=== PATIENT | male | born 1960 | race Caucasian/White ===

== ENCOUNTER 2018-05-31 12:45 | Outpatient (CLI) | payer MEDICAID, SELFPAY ==
--- NOTE | 2018-05-31 13:00 | DI.RAD_ITS ---
SYMPTOMS/DIAGNOSIS: RT THUMB PAIN, RT SHOULDER PAIN, AC OA RIGHT THUMB: Three views. No bone or joint abnormality is identified. The soft tissues are unremarkable. IMPRESSION: No acute abnormality. RIGHT SHOULDER: Multiple views. There are mild hypertrophic changes seen at the acromioclavicular joint. The glenohumeral joint is well maintained. The bones are intact and normally mineralized. The soft tissues are unremarkable. 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
== END 2018-05-31 13:05 ==
PROVIDERS: PCP Nurse Practitioner; Visit Provider Nurse Practitioner
DX: M25.511 Pain in right shoulder (principal); M19.011 Primary osteoarthritis, right shoulder; M79.644 Pain in right finger(s)
CPT/HCPCS: 73030; 73140

== ENCOUNTER 2018-06-24 00:43 | Outpatient (CLI) | payer MEDICAID, SELFPAY ==
--- NOTE | 2018-06-24 11:37 | DI.CT_ITS ---
SYMPTOMS/DIAGNOSIS: RT SHOULDER PAIN, M25.511, BONE DISORDER SEEN ON X-RAY, M85.[address]: Comparison is made with plain films dated . There is spurring at the AC joint which appears to impinge on the distal supraspinatus muscle. There is no evidence of muscle atrophy. There is no gross evidence of a rotator cuff tendon tear. No joint effusion is visible. There is minimal spurring at the glenoid. The visualized portions of the right lung are clear. IMPRESSION: AC joint degenerative changes with impingement on the distal supraspinatus muscle.
== END 2018-06-24 01:03 ==
PROVIDERS: PCP Nurse Practitioner; Visit Provider Orthopaedic Surgery
DX: M25.511 Pain in right shoulder (principal); M19.011 Primary osteoarthritis, right shoulder; M75.41 Impingement syndrome of right shoulder; M85.811 Other specified disorders of bone density and structure, right shoulder
CPT/HCPCS: 73200

== ENCOUNTER 2018-09-20 01:12 | Emergency (ER) | payer MEDICAID, SELFPAY ==
[2018-09-20] VITALS (12 sets, daily range): BP systolic 127–158; BP diastolic 68–91; PULSE 60–73; RESP 11–23; TEMP 36.6; O2SAT 91–99
--- NOTE | 2018-09-20 01:26 | W.ED.GENAD ---
Discharge Plan Disposition Patient Disposition: HOME Condition: Good Discharge Details Chief Complaint: Chest Pain Clinical Impression: Abdominal pain, acute, epigastric, Biliary colic Primary Care Provider: Mervat Garner ED Provider: Louie Enamorado Home Meds and New Rx's Prescriptions: New dicyclomine 10 mg capsule 10 mg PO QID Qty: 20 RF: 0 ibuprofen [Motrin IB] 200 MG tablet 600 mg PO Q6H 5 Days Qty: 60 RF: 0 No Action trazodone 100 mg tablet 100 mg PO HS PRNRF: 0 Jardiance 10 mg tablet 10 mg PO DAILY Qty: 30 RF: 1 aspirin [Aspir-81] 81 MG tablet,delayed release (DR/EC) 81 mg PO DAILY RF: 0 multivitamin [Daily Multiple] 1 EACH tablet 1 ea PO DAILY RF: 0 Blood Glucose Test 1 EACH strip 1 ea Miscellaneous DAILY Qty: 300 RF: 3 lancets 1 EACH misc 1 ea Miscellaneous DAILY Qty: 300 RF: 3 vitamin B complex 1 EACH capsule 1 ea PO DAILY RF: 0 bee pollen 550 MG capsule 550 mg PO DAILY RF: 0 cane 1 EACH device 1 ea Miscellaneous DAILY Qty: 1 RF: 0 hydrochlorothiazide 25 MG tablet 25 mg PO DAILY Qty: 90 RF: 3 Januvia 100 MG tablet 100 mg PO DAILY Qty: 90 RF: 3 glipizide 5 mg tablet extended release 24hr 10 mg PO DAILY Qty: 180 RF: 3 metoprolol succinate 50 mg tablet extended release 24 hr 50 mg PO DAILY Qty: 90 RF: 3 pantoprazole 40 mg tablet,delayed release (DR/EC) 40 mg PO BID Qty: 60 RF: 3 ascorbic acid (vitamin C) 1,000 MG tablet 2,000 mg PO DAILY RF: 0 lysine [L-Lysine] 500 mg tablet 1,000 mg PO DAILY RF: 0 Discharge Instructions Instructions: Biliary Colic (ED), Abdominal Pain (ED) Additional Instructions: You will be contacted for your outpatient ultrasound of your gallbladder. Please follow-up with surgery, he will be contacted when an appointment has been made. If you notice any worsening of your symptoms, or any new symptoms such as vomiting, diarrhea, fever, chills, shortness of breath, chest pain, numbness, weakness, or fainting , please return immediately to the emergency department for reevaluation. Please follow up with your primary care provider as soon as possible for reassessment and reevaluation. As always, it was a pleasure participating in your medical care today. Referrals: Mervat Garner NP [Primary Care Provider] - Medical Decision Making This is a 57-year-old male with a past medical history of marijuana use, diabetes, obesity, and anxiety who presents for evaluation of chest pain. Pain started early today, although pain being greater than 12 hours , it has gradually gotten worse. He describes it as an achy stabbing-like sensation in his epigastric region that goes straight to his back, up his chest and down his abdomen. He denies any tearing sensation. He denies a history of cardiac disease. No exertional components. Exam demonstrates warm extremities, intact peripheral pulses, no signs of vascular compromise. Patient is hemodynamically stable. Differential includes an anxiety component, gallbladder etiology, dissection, ACS, pancreatitis. Perform laboratory and imaging workup to rule out acute life-threatening etiologies. Anxiety attack would certainly be a diagnosis of exclusion after these have been ruled out. 1:41 AM 2 nitroglycerin were given and the patient had no improvement of his symptoms whatsoever. We will try GI cocktail. 2:49 AM GI cocktail did improve the patient's symptoms somewhat. Laboratory workup has returned, patient demonstrates continued reassuring vital signs, labs demonstrate no white count, no bandemia or left shift. Normal electrolytes, normal AST, ALT and bilirubin. Troponin is less than 0.02, lipase is normal. CT scan has returned and does demonstrate a notably distended gallbladder, however no clear indication for inflammation per radiology report. Especially with normal lipase, bilirubin, AST and ALT with no white count I do not think that the patient demonstrates current clinical picture consistent with acute cholecystitis. Some of his pain may certainly be from his mildly distended gallbladder, but there is no indication for an acute surgical approach at this time. Ultrasound is not available at this time however with reassuring vital signs, no signs of infection or severe gallbladder pathology I do feel that an outpatient ultrasound is certainly reasonable with surgical follow-up. Bedside limited ultrasound does demonstrate small gallstones and a distended gallbladder, gallbladder wall thickness appears to be within normal limits, and he demonstrates a negative sonographic Rico sign. Patient also may have a component of mild gastric ulcers with his improvement with his GI cocktail. With an unchanged EKG, normal troponin, and otherwise benign CT evaluation signs and symptoms clinically inconsistent with ACS, dissection, PE, I feel he can be discharged home. We will give Bentyl for home use, close surgical follow-up, and outpatient ultrasound follow-up. I have extensively reviewed the treatment plan and discharge instructions with the patient. I have addressed all patient concerns at this time. The patient was made aware of what symptoms to monitor for that would warrant a return to the emergency department. Discussed the plan with the patient, they demonstrate verbal understanding and agreement with our assessment and plan at this time. EKG 1: 21 Rate 66, intervals normal, sinus rhythm, no significant ST elevations, there is T wave flattening in V3 V4 V5. Q wave is noted in lead III.. Prior EKG from 05/02/14 demonstrates no acute changes. CLINICAL HISTORY: 57 years old, male; Pain; Chest pain; Type not specified; Abdominal pain; Generalized; Patient HX: Severe abd and chest pain, vomiting TECHNIQUE: Imaging protocol: Axial computed tomographic angiography images of the abdomen with intravenous contrast material, including non-contrast images if performed. 3D rendering: MIP reconstructed images were created and reviewed. Radiation optimization: All CT scans at this facility use at least one of these dose optimization techniques: automated exposure control; mA and/or kV adjustment per patient size (includes targeted exams where dose is matched to clinical indication); or iterative reconstruction. Contrast material: Omnipaque 350 Contrast volume: 100 ml Contrast route: IV RAC COMPARISON: CR CHEST 2 VIEWS PA,LAT 07/14/2016 3:49 PM FINDINGS: Lungs: Unremarkable. No consolidation. VASCULATURE: Aorta: No aortic aneurysm. No aortic dissection. Celiac trunk and mesenteric arteries: No occlusion or significant stenosis. Renal arteries: No occlusion or significant stenosis. ABDOMEN: Liver: Liver is diffusely low-attenuation. Gallbladder and bile ducts: Gallbladder is distended but not obviously inflamed. Pancreas: Normal. No ductal dilation. Spleen: Normal. No splenomegaly. Adrenals: Normal. No mass. Kidneys and ureters: Normal. No hydronephrosis. Stomach and bowel: Unremarkable. No obstruction. No mucosal thickening. Intraperitoneal space: Unremarkable. No free air. No significant fluid collection. Bones/joints: Unremarkable. No acute fracture. No dislocation. Soft tissues: Unremarkable. Lymph nodes: Unremarkable. No enlarged lymph nodes. IMPRESSION: Fatty liver. Distended gallbladder. Dictated and Authenticated by: Zeeshan Klein MD. HPI General Date/Time Provider Initiated Documentation: 09/20/18 01:20. HPI Narrative: This is a 57-year-old male with a past medical history of diabetes, mild obesity, marijuana, and anxiety who presents today for evaluation chest pain. The patient states that for the last few hours today he has had chest pain that started in the epigastric region and radiated up to his chest and down his abdomen. Pain is worsened throughout the day. It started while he was just sitting and resting. There appears to be no exertional component. He denies any significant shortness of breath, arm, neck, or shoulder pain. He denies any vomiting or diarrhea. Does admit to mild nausea. He states that he has had symptoms similar to this and worse in the past which was an anxiety attack at that time. Patient denies any previous history of cardiac disease. He denies any tobacco use. Patient denies any urinary complaints. He has no other complaints modifying factors at this time. Related Data Home Medications Medication Instructions Recorded Confirmed ascorbic acid (vitamin C) 2,000 mg PO DAILY 04/12/14 09/20/18 aspirin [Aspir 81] 81 mg PO DAILY tab-cap 05/09/15 09/20/18 multivitamin [Daily Multiple 1 ea PO DAILY 05/09/15 09/20/18 Vitamin] blood sugar diagnostic [Blood #300 strip 05/23/15 08/31/18 Glucose Test] lancets #300 ea 05/23/15 08/31/18 bee pollen 550 mg PO DAILY 12/30/16 09/20/18 vitamin B complex 1 ea PO DAILY 12/30/16 09/20/18 cane #1 ea 08/19/17 08/31/18 hydrochlorothiazide 25 mg PO DAILY #90 tab-cap 10/26/17 09/20/18 sitagliptin [Januvia] 100 mg PO DAILY #90 tab-cap 12/17/17 09/20/18 glipizide ER 5 mg tablet, extended 10 mg PO DAILY #180 tab-cap 03/08/18 09/20/18 release 24 hr metoprolol succinate ER 50 mg 50 mg PO DAILY #90 tab 03/23/18 09/20/18 tablet,extended release 24 hr pantoprazole 40 mg tablet,delayed 40 mg PO BID #60 tab 05/21/18 09/20/18 release empagliflozin 10 mg tablet 10 mg PO DAILY #30 tab 08/31/18 09/20/18 lysine 500 mg tablet 1,000 mg PO DAILY tab 08/31/18 09/20/18 trazodone 100 mg tablet 100 mg PO HS PRN tab-cap 08/31/18 09/20/18 dicyclomine 10 mg PO QID #20 cap 09/20/18 ibuprofen [Motrin Ib] 600 mg PO Q6H 5 Days #60 tab 09/20/18 Previous Rx's Medication Instructions Recorded cane #1 ea 08/19/17 hydrochlorothiazide 25 mg PO DAILY #90 tab-cap 10/26/17 sitagliptin [Januvia] 100 mg PO DAILY #90 tab-cap 12/17/17 glipizide ER 5 mg tablet, extended 10 mg PO DAILY #180 tab-cap 03/08/18 release 24 hr metoprolol succinate ER 50 mg 50 mg PO DAILY #90 tab 03/23/18 tablet,extended release 24 hr pantoprazole 40 mg tablet,delayed 40 mg PO BID #60 tab 05/21/18 release empagliflozin 10 mg tablet 10 mg PO DAILY #30 tab 08/31/18 dicyclomine 10 mg PO QID #20 cap 09/20/18 ibuprofen [Motrin Ib] 600 mg PO Q6H 5 Days #60 tab 09/20/18 Allergies Allergy/AdvReac Type Severity Reaction Status Date / Time pregabalin [From Lyrica] AdvReac Mild 10/27/2016 Verified 09/20/18 01:33 lower extremity edema metformin AdvReac elevated Verified 09/20/18 01:33 creatinine General Stated Complaint: Chest Pain KT: 2 Review of Systems Review of Systems All systems reviewed & are unremarkable except as noted in HPI and below PFSH Medical History Diabetes type 2, controlled Essential hypertension GERD (gastroesophageal reflux disease) History of Helicobacter pylori infection Surgical History Arthroplasty of knee (08/14/15) Colonoscopy - IV Sedation (04/20/15) Family History Mother Substance abuse Diabetes Essential hypertension Heart disease Hyperlipidemia Mental disorder Other Chronic mental illness Social History Smoking/Tobacco Use Status: Former Tobacco Use Drug use: Daily Substance use type: marijuana Do you feel safe at home: Yes Do you feel safe in your relationship?: Yes Exam Narrative Exam Narrative: 1.Const: Well-nourished, Well-developed, appearing stated age 2.Eyes: PERRL, no conjunctival injection, and symmetrical lids. 3.ENT: Atraumatic external nose and ears. Moist MM. Neck: Symmetric, trachea midline, No thyromegaly. 4.CVS: +S1/S2, No murmurs or gallops. Peripheral pulses 2+ and equal in all extremities. Brisk capillary refill in all extremities. 5.RESP: Unlabored respiratory effort. Clear to auscultation bilaterally. No wheezes rales or rhonchi 6.GI: Soft, mild diffuse generalized abdominal tenderness. No guarding or rebound. No pain at McBurney's point, negative Rico sign 7.MSK: Normocephalic/Atraumatic, Extremities w/o deformity or ttp No cyanosis or clubbing, Normal movement of all extremities 8.Skin: Warm, Dry. No rashes or lesions. 9.Neuro: battery charger conveyor line II-XII grossly intact. Sensation grossly intact, no focal neurologic deficits. 10.Psych: (AAO) x3. Appropriate mood and affect
[2018-09-20 01:40] LABS: Abs Immature Grans 0.02 k/cumm (0.0-0.09); Absolute Basophil Count 0.05 k/cumm (0.0-0.2); Absolute Eosinophil Count 0.14 k/cumm (0.0-0.7); Absolute Lymphocyte Count 3.73 k/cumm (1.2-3.4); Absolute Monocyte Count 1.03 k/cumm (0.11-0.7); Absolute Neutrophil Count 5.03 k/cumm (1.2-6.7); Basophils % 0.5; Eosinophils % 1.4; HGB 17.2 g/dL (13.5-17.5); Immature Grans % 0.2; Lymphocytes % 37.3; Mean Corp. HGB Concentration 35.8 g/dL (32.0-36.0); Mean Corpuscular Hemoglobin 31.6 pg (27.0-33.0); Mean Corpuscular Volume 88.1 fL (80-95); Mean Platelet Volume 10.4 fL (8.0-11.0); Monocytes % 10.3; Neutrophils % 50.3; Platelet Count 234 x1000/uL (130-400); RBC 5.45 m/cumm (4.50-6.00); RBC Distribution Width 12.9 % (11.8-14.1)
[2018-09-20] MEDS: Aspirin 81 MG CHEW 324 MG CH (01:42)
[2018-09-20 01:46] LABS: Lipase 239 U/L (73-393)
[2018-09-20 01:50] LABS: PTT Activated 27.5 sec (21.0-31.4); Prothrombin Time 9.9 sec (9.3-11.0)
[2018-09-20 02:01] LABS: ALT 71 U/L (12-78); AST 37 U/L (15-37); Albumin 4.1 g/dL (3.4-5.0); Alkaline Phosphatase 124 U/L (46-116); Anion Gap 9.9 mmol/L (3-11); BUN 21 mg/dL (7-18); Bilirubin, Total 0.9 mg/dL (0.2-1.0); CO2 30.1 mmol/L (21.0-32.0); CREATININE 1.27 mg/dL (0.70-1.30); Calcium 9.3 mg/dL (8.5-10.1); Chloride 99 mmol/L (98-107); ETHANOL BLOOD < 3.0 mg/dL (<3); Estimated GFR 58.66 (mL/min/1.73m2); Glucose 190 mg/dL (70-100); NT-proBNP 16 pg/mL; Potassium 3.5 mmol/L (3.5-5.1); Sodium 139 mmol/L (136-145); Troponin I < 0.02 ng/mL (0.00-0.06)
[2018-09-20] MEDS: Ondansetron 4 MG/2 ML VIAL IVP (02:03)
[2018-09-20] MEDS: Omnipaque 350 MG/ML 100 ML BTL IJ (02:23)
--- NOTE | 2018-09-20 02:30 | DI.CT_ITS ---
SYMPTOMS/DIAGNOSIS: CHEST AND ABDOMINAL PAIN, ? DISSECTION CTA OF THE CHEST AND ABDOMEN: CT angiography was performed with multi slice acquisition and multi planar and 3D reconstruction. Routine examination was performed. CT ANGIOGRAPHY OF THE CHEST: The thoracic aorta is intact and normal caliber. No evidence of dissection or aneurysm. The heart size is within normal limits. No significant pericardial effusion is seen. The visualized pulmonary arteries show no evidence of embolic disease. No significant thoracic adenopathy, pleural effusion or pneumothorax is identified. The lungs show no evidence of a consolidating infiltrate. The tracheobronchial tree is unremarkable. The bones are intact. IMPRESSION: No evidence of acute thoracic aortic injury/dissection. CT ANGIOGRAPHY OF THE ABDOMEN: The abdominal aorta is intact. No dissection or aneurysm is seen. The celiac axis is unremarkable without evidence of occlusion or significant stenosis. The mesenteric arteries are unremarkable without evidence of occlusion or significant stenosis. The renal arteries are unremarkable. There is diffuse decreased attenuation of the liver consistent with hepatic steatosis. The portal and superior mesenteric veins appear patent. The gallbladder is distended. No stones or biliary ductal dilatation is present. The pancreas, spleen, adrenal glands, kidneys and ureters are unremarkable. The bowel is unremarkable. No significant abdominal adenopathy, ascites or pneumoperitoneum is present. The bones are intact. IMPRESSION: 1. No evidence of acute abdominal arterial injury. 2. Hepatic steatosis. 3. Distended gallbladder. No stones or biliary ductal dilatation is present.
[2018-09-20] MEDS: Normal Saline 1,000 ML 1000 ML IV (02:31)
[2018-09-20] MEDS: Normal Saline Flush 10 ML SYR IVP (02:31)
--- NOTE | 2018-09-20 02:44 | DI.VRAD_ITS ---
EXAM: CT Angiography Chest With Contrast EXAM DATE/TIME: 09/20/2018 1:32 AM CLINICAL HISTORY: 57 years old, male; Pain; Chest pain; Type not specified; Abdominal pain; Generalized; Patient HX: Severe abd and chest pain, vomiting TECHNIQUE: Imaging protocol: Axial computed tomographic angiography images of the chest with intravenous contrast using CT angiography protocol. 3D rendering: MIP reconstructed images were created and reviewed. Radiation optimization: All CT scans at this facility use at least one of these dose optimization techniques: automated exposure control; mA and/or kV adjustment per patient size (includes targeted exams where dose is matched to clinical indication); or iterative reconstruction. Contrast material: Omnipaque 350 Contrast volume: 100 ml Contrast route: IV RAC COMPARISON: CR CHEST 2 VIEWS PA,LAT 07/14/2016 3:49 PM FINDINGS: Pulmonary arteries: Unremarkable. No obvious pulmonary emboli. Aorta: Unremarkable. No aortic aneurysm. No aortic dissection. Lungs: Unremarkable. No consolidation. No masses. No suspicious nodules. Pleural space: Unremarkable. No pneumothorax. No pleural effusion. Heart: Unremarkable. No pericardial effusion. No obvious heart strain. Lymph nodes: Unremarkable. No enlarged lymph nodes. Bones/joints: Unremarkable. No acute fracture. Soft tissues: Unremarkable. IMPRESSION: No acute findings. EXAM: CT Angiography Abdomen With Contrast EXAM DATE/TIME: 09/20/2018 1:32 AM CLINICAL HISTORY: 57 years old, male; Pain; Chest pain; Type not specified; Abdominal pain; Generalized; Patient HX: Severe abd and chest pain, vomiting TECHNIQUE: Imaging protocol: Axial computed tomographic angiography images of the abdomen with intravenous contrast material, including non-contrast images if performed. 3D rendering: MIP reconstructed images were created and reviewed. Radiation optimization: All CT scans at this facility use at least one of these dose optimization techniques: automated exposure control; mA and/or kV adjustment per patient size (includes targeted exams where dose is matched to clinical indication); or iterative reconstruction. Contrast material: Omnipaque 350 Contrast volume: 100 ml Contrast route: IV RAC COMPARISON: CR CHEST 2 VIEWS PA,LAT 07/14/2016 3:49 PM FINDINGS: Lungs: Unremarkable. No consolidation. VASCULATURE: Aorta: No aortic aneurysm. No aortic dissection. Celiac trunk and mesenteric arteries: No occlusion or significant stenosis. Renal arteries: No occlusion or significant stenosis. ABDOMEN: Liver: Liver is diffusely low-attenuation. Gallbladder and bile ducts: Gallbladder is distended but not obviously inflamed. Pancreas: Normal. No ductal dilation. Spleen: Normal. No splenomegaly. Adrenals: Normal. No mass. Kidneys and ureters: Normal. No hydronephrosis. Stomach and bowel: Unremarkable. No obstruction. No mucosal thickening. Intraperitoneal space: Unremarkable. No free air. No significant fluid collection. Bones/joints: Unremarkable. No acute fracture. No dislocation. Soft tissues: Unremarkable. Lymph nodes: Unremarkable. No enlarged lymph nodes. IMPRESSION: Fatty liver. Distended gallbladder. Dictated and Authenticated by: Zeeshan Klein MD. Ordering:SANDRA Palma MD
[2018-09-20] MEDS: Dicyclomine 20 MG TAB PO (03:08)
[2018-09-20] MEDS: Ketorolac 30 MG/ML VIAL IM (03:08)
--- NOTE | 2018-09-20 09:18 | CMPROGNOTE_ITS ---
Care Management Progress Note 09/20-Dr. Enamorado requested assistance with a general surgery f/u in two weeks for biliary colic. Referral faxed to [facility] this am.
--- NOTE | 2018-09-20 09:18 | PDOC.ERCMPRO ---
Care Management Progress Note 09/20-Dr. Enamorado requested assistance with a general surgery f/u in two weeks for biliary colic. Referral faxed to [facility] this am.
== END 2018-09-20 03:19 | disposition home or self-care (01) ==
LOC: ER 03:18
PROVIDERS: Emergency Provider Student in an Organized Health Care Education/Training Program; PCP Nurse Practitioner
DX: R10.13 Epigastric pain (principal); K80.20 Calculus of gallbladder without cholecystitis without obstruction; I10 Essential (primary) hypertension; E11.9 Type 2 diabetes mellitus without complications
CPT/HCPCS: 36415; 71275; 74175; 80053; 83690; 93005; 96360; 96372; 99285; 80320; 83880; 84484; 85025; 85610; 85730; 93010; J1885; J3490

== ENCOUNTER 2018-09-24 00:48 | Outpatient (CLI) | payer MEDICAID, SELFPAY ==
--- NOTE | 2018-09-24 07:54 | DI.US_ITS ---
SYMPTOM/DIAGNOSIS: RUQ PAIN, ENLARGED GALLBLADDER ABDOMEN ULTRASOUND: The liver is enlarged and is of increased echogenicity and decrease through transmission consistent with hepatic steatosis. No focal hepatic abnormality is seen. Significant portions of the liver were non visualized. There is cholelithiasis. Gallbladder wall is of normal thickness. No biliary dilatation is seen. Pancreas poorly visualized. Kidneys appear intact as seen. Abdominal aorta and IVC poorly visualized. CONCLUSION: Findings consistent with hepatic steatosis and cholelithiasis.
== END 2018-09-24 01:08 ==
PROVIDERS: PCP Nurse Practitioner; Visit Provider Student in an Organized Health Care Education/Training Program
DX: R10.11 Right upper quadrant pain (principal); K76.0 Fatty (change of) liver, not elsewhere classified; K80.20 Calculus of gallbladder without cholecystitis without obstruction
CPT/HCPCS: 76700

== ENCOUNTER 2018-11-16 09:48 | Outpatient (CLI) | payer MEDICAID, SELFPAY ==
[2018-11-16 11:16] LABS: ALT 58 U/L (12-78); AST 26 U/L (15-37); Albumin 4.1 g/dL (3.4-5.0); Alkaline Phosphatase 110 U/L (46-116); Anion Gap 10.1 mmol/L (3-11); BUN 20 mg/dL (7-18); Bilirubin, Total 0.6 mg/dL (0.2-1.0); CO2 27.9 mmol/L (21.0-32.0); CREATININE 1.09 mg/dL (0.70-1.30); Calcium 9.2 mg/dL (8.5-10.1); Calculated LDL 112; Chloride 104 mmol/L (98-107); Cholesterol 167 mg/dL (50-200); Glucose 174 mg/dL (70-100); HDL Cholesterol 27 mg/dL (40-60); Sodium 142 mmol/L (136-145); Total Protein 7.6 g/dL (6.4-8.2); Triglyceride 143 mg/dL (30-150)
[2018-11-16 11:48] LABS: COMMENT (LAB VIEW ONLY) 382.98 mg/dL; Microalb ug/mg Crea 2.2 ug/mg Cr
[2018-11-17 10:49] LABS: Hepatitis C Ab w Rflx HCV PCR Negative (NEGAT)
[2018-11-17 11:32] LABS: Syphilis Serology (RPR) Negative (Negative)
[2018-11-17 12:13] LABS: HIV-1/2 Ag & Ab Screen Negative (NEGAT)
== END 2018-11-16 10:08 ==
PROVIDERS: PCP Nurse Practitioner; Visit Provider Nurse Practitioner
DX: E78.1 Pure hyperglyceridemia (principal); I10 Essential (primary) hypertension; Z11.3 Encounter for screening for infections with a predominantly sexual mode of transmission; Z20.5 Contact with and (suspected) exposure to viral hepatitis; Z11.59 Encounter for screening for other viral diseases; Z11.4 Encounter for screening for human immunodeficiency virus [HIV]
CPT/HCPCS: 36415; 80053; 80061; 83721; 86803; 87389; 82043; 82570; 86592

== ENCOUNTER 2019-02-16 08:55 | Outpatient (CLI) | payer MEDICAID, SELFPAY ==
--- NOTE | 2019-02-16 08:57 | DI.RAD_ITS ---
SYMPTOMS/DIAGNOSIS: CHRONIC BACK PAIN, M54.4, G89.29 LUMBAR SPINE: The vertebral bodies are well maintained in height. There are small endplate osteophytes throughout. There is sacralization of the left L 5 transverse process. No spondylolysis, spondylolisthesis or scoliosis is seen. IMPRESSION: Mild degenerative disc changes.
== END 2019-02-16 09:15 ==
PROVIDERS: PCP Nurse Practitioner; Visit Provider Nurse Practitioner
DX: M54.5 Low back pain (principal); M51.36 Other intervertebral disc degeneration, lumbar region; G89.29 Other chronic pain
CPT/HCPCS: 72110

== ENCOUNTER 2019-06-23 14:38 | Outpatient (CLI) | payer MEDICAID, SELFPAY ==
--- NOTE | 2019-06-23 12:03 | DI.RAD_ITS ---
EXAM: XR SHOULDER RT COMPLETE 2+V CLINICAL HISTORY: pain M25.511 TECHNIQUE: Six views were obtained. COMPARISON: LEFT SHOULDER COMPLETE from 05/03/2014 FINDINGS: There are prominent hypertrophic degenerative changes at the acromioclavicular joint. There appears to be mild thinning of the cartilaginous joint space of the glenohumeral joint. Minimal subchondral sclerosis and marginal osteophyte formation of the glenoid noted. Humeral head appears essentially i ntact. IMPRESSION: Prominent hypertrophic AC degenerative changes. Mild DJD glenohumeral joint.
--- NOTE | 2019-06-23 12:06 | DI.RAD_ITS ---
EXAM: XR CERVICAL SPINE COMP 4-5V CLINICAL HISTORY: pain M54.2 CERVICALGIA, TECHNIQUE: Six views were obtained. COMPARISON: No exams were available for comparison FINDINGS: Note is made of soft tissue calcification in the posterior midline of the cervical region from the C3 to C5 levels consistent with ligamentous and/or tendinous calcification. There is slight loss of th e cervical lordosis. The intervertebral disc spaces appear well maintained. Mild hypertrophic spurr ing of the vertebral endplates and facet joints is noted in the lower cervical region. No other sign ificant bony abnormality seen. Neural foramina appear fairly well maintained bilaterally except for perhaps slight narrowing at C3-4 on the right. IMPRESSION: Mild degenerative changes of the cervical spine as described above.
== END 2019-06-23 14:58 ==
PROVIDERS: PCP Nurse Practitioner; Visit Provider Nurse Practitioner
DX: M25.511 Pain in right shoulder (principal); M19.011 Primary osteoarthritis, right shoulder; M54.2 Cervicalgia; M47.812 Spondylosis without myelopathy or radiculopathy, cervical region
CPT/HCPCS: 72050; 73030

== ENCOUNTER 2019-06-30 12:00 | Outpatient (REF) | payer MEDICAID, SELFPAY ==
[2019-06-30 13:26] LABS: Abs Immature Grans 0.02 k/cumm (0.0-0.09); Absolute Basophil Count 0.04 k/cumm (0.0-0.2); Absolute Eosinophil Count 0.19 k/cumm (0.0-0.7); Absolute Lymphocyte Count 2.12 k/cumm (1.2-3.4); Absolute Monocyte Count 0.62 k/cumm (0.11-0.7); Absolute Neutrophil Count 4.22 k/cumm (1.2-6.7); Basophils % 0.6; Eosinophils % 2.6; HCT 48.3 % (40.0-50.0); HGB 16.9 g/dL (13.5-17.5); Immature Grans % 0.3 %; Lymphocytes % 29.4; Mean Corpuscular Hemoglobin 31.5 pg (27.0-33.0); Mean Corpuscular Volume 89.9 fL (80-95); Mean Platelet Volume 11.1 fL (8.0-11.0); Monocytes % 8.6; Neutrophils % 58.5; Platelet Count 296 x1000/uL (130-400); RBC 5.37 m/cumm (4.50-6.00); White Blood Cell Count 7.21 k/cumm (4.4-10.8)
[2019-06-30 13:35] LABS: ALT 859 U/L (16-63); AST 355 U/L (15-37); Albumin 4.1 g/dL (3.4-5.0); Alkaline Phosphatase 392 U/L (46-116); Anion Gap 10.1 mmol/L (3-11); BUN 19 mg/dL (7-18); Bilirubin, Total 4.8 mg/dL (0.2-1.0); CO2 26.9 mmol/L (21.0-32.0); CREATININE 1.23 mg/dL (0.70-1.30); Calcium 9.4 mg/dL (8.5-10.1); Chloride 97 mmol/L (98-107); Glucose 272 mg/dL (74-106); Potassium 3.8 mmol/L (3.5-5.1); Sodium 134 mmol/L (136-145); Total Protein 7.7 g/dL (6.4-8.2)
[2019-07-01 10:59] LABS: Hepatitis A Antibody IgM Negative (Negative); Hepatitis B Core Antibody Negative (Negative); Hepatitis B surface Ag Negative (Negative); Hepatitis C Ab w Rflx HCV PCR Negative (Negative)
== END 2019-06-30 12:20 ==
LOC: LBN 12:00
PROVIDERS: PCP Nurse Practitioner; Visit Provider Family Medicine
DX: R17 Unspecified jaundice (principal); Z11.59 Encounter for screening for other viral diseases
CPT/HCPCS: 80053; 86704; 86709; 86803; 87340; 85025

== ENCOUNTER 2019-07-04 00:37 | Outpatient (CLI) | payer MEDICAID, SELFPAY ==
--- NOTE | 2019-07-04 10:48 | DI.US_ITS ---
EXAM: US ABDOMEN CLINICAL HISTORY: Jaundiced, suspect cholecystitis, calculus of gallbladder-K80.20 TECHNIQUE: Ultrasound performed using standard protocol. COMPARISON: US ABDOMEN from 09/24/2018 FINDINGS: Visualized liver parenchyma appears mildly echogenic consistent hepatic steatosis. There is cholelit hiasis without gallbladder wall thickening. No biliary dilatation. Negative sonographic Rico sign . Spleen is unremarkable in appearance. The kidneys are unremarkable in appearance with no evidence of nephrolithiasis or hydronephrosis. Abdominal aorta and IVC are of normal diameter. Pancreas grossly unremarkable as visualized. IMPRESSION: Cholelithiasis and probable hepatic steatosis. Negative sonographic Rico sign.
== END 2019-07-04 00:57 ==
PROVIDERS: PCP Nurse Practitioner; Visit Provider Family Medicine
DX: K80.20 Calculus of gallbladder without cholecystitis without obstruction (principal); R17 Unspecified jaundice; K76.0 Fatty (change of) liver, not elsewhere classified
CPT/HCPCS: 76700

== ENCOUNTER 2019-08-16 10:49 | Outpatient (REF) | payer MEDICAID, SELFPAY | END 2019-08-16 11:09 | LOC: LBN 10:49 | PROVIDERS: PCP Nurse Practitioner; Visit Provider Nurse Practitioner | DX: B37.49 Other urogenital candidiasis (principal) | CPT/HCPCS: 87070 ==

== ENCOUNTER 2019-08-16 10:51 | Outpatient (CLI) | payer MEDICAID, SELFPAY ==
[2019-08-16 12:31] LABS: ALT 60 U/L (16-63); AST 27 U/L (15-37); Albumin 4.3 g/dL (3.4-5.0); Alkaline Phosphatase 127 U/L (46-116); Anion Gap 9.1 mmol/L (3-11); BUN 18 mg/dL (7-18); CO2 27.9 mmol/L (21.0-32.0); CREATININE 1.24 mg/dL (0.70-1.30); Calcium 9.2 mg/dL (8.5-10.1); Chloride 100 mmol/L (98-107); Glucose 303 mg/dL (74-106); Potassium 4.2 mmol/L (3.5-5.1); Sodium 137 mmol/L (136-145); Total Protein 7.6 g/dL (6.4-8.2)
== END 2019-08-16 11:11 ==
PROVIDERS: PCP Nurse Practitioner; Visit Provider Nurse Practitioner
DX: E11.9 Type 2 diabetes mellitus without complications (principal); I10 Essential (primary) hypertension; R79.9 Abnormal finding of blood chemistry, unspecified
CPT/HCPCS: 36415; 80053

== ENCOUNTER 2019-10-17 19:36 | Outpatient (REF) | payer MEDICAID, SELFPAY ==
[2019-10-19 14:41] LABS: Chlamydia Result Negative (Negative); GC Result Negative (Negative)
== END 2019-10-17 19:56 ==
LOC: LBN 19:36
PROVIDERS: PCP Nurse Practitioner; Visit Provider Nurse Practitioner
DX: R36.9 Urethral discharge, unspecified (principal); Z11.3 Encounter for screening for infections with a predominantly sexual mode of transmission
CPT/HCPCS: 87491; 87591

== ENCOUNTER 2019-10-31 18:10 | Outpatient (REF) | payer MEDICAID, SELFPAY ==
[2019-11-01 09:53] LABS: PSA, Screening 1.1 ng/mL (0.0-3.5)
== END 2019-10-31 18:30 ==
LOC: LBN 18:10
PROVIDERS: PCP Nurse Practitioner; Visit Provider Urology
DX: Z12.5 Encounter for screening for malignant neoplasm of prostate (principal)
CPT/HCPCS: 84153

== ENCOUNTER 2020-05-01 13:01 | Outpatient (REF) | payer MEDICAID, SELFPAY ==
[2020-05-01 18:35] LABS: COMMENT (LAB VIEW ONLY) 137.45 mg/dL
== END 2020-05-01 13:21 ==
LOC: LBN 13:01
PROVIDERS: PCP Nurse Practitioner; Visit Provider Nurse Practitioner
DX: E11.40 Type 2 diabetes mellitus with diabetic neuropathy, unspecified (principal)
CPT/HCPCS: 82043; 82570

== ENCOUNTER 2020-05-04 03:14 | Outpatient (CLI) | payer MEDICAID, SELFPAY ==
[2020-05-04 08:52] LABS: HCT 47.2 % (40.0-50.0); HGB 16.6 g/dL (13.5-17.5); MCH 31.9 pg (27.0-33.0); MCHC 35.2 % (32.0-36.0); MCV 90.8 fL (80-95); Platelet Count 239 10^3/uL (130-400); RDW 12.1 % (11.8-14.1); RDW-SD 39.7 fL; WBC 9.28 10^3/uL (4.4-10.8)
[2020-05-04 10:00] LABS: ALT 67 U/L (16-63); AST 29 U/L (15-37); Albumin 4.1 g/dL (3.4-5.0); Alkaline Phosphatase 97 U/L (46-116); Anion Gap 10.5 mmol/L (3-11); BUN 22 mg/dL (7-18); Bilirubin, Total 0.5 mg/dL (0.2-1.0); CO2 27.5 mmol/L (21.0-32.0); CREATININE 1.23 mg/dL (0.70-1.30); Calcium 9.1 mg/dL (8.5-10.1); Calculated LDL 122 mg/dL (<100); Chloride 104 mmol/L (98-107); Cholesterol 200 mg/dL (<200); Glucose 224 mg/dL (74-106); HDL Cholesterol 34 mg/dL (40-60); Potassium 4.3 mmol/L (3.5-5.1); Sodium 142 mmol/L (136-145); Total Protein 7.4 g/dL (6.4-8.2); Triglyceride 222 mg/dL (<150)
== END 2020-05-04 03:34 ==
PROVIDERS: PCP Nurse Practitioner; Visit Provider Nurse Practitioner
DX: E11.65 Type 2 diabetes mellitus with hyperglycemia (principal); E78.1 Pure hyperglyceridemia; G47.33 Obstructive sleep apnea (adult) (pediatric)
CPT/HCPCS: 36415; 80053; 80061; 85027

== ENCOUNTER 2020-05-04 04:16 | Outpatient (CLI) | payer MEDICAID, SELFPAY ==
--- NOTE | 2020-05-04 06:30 | DI.CT_ITS ---
EXAM: CT LUMBAR SPINE WO CLINICAL HISTORY: chronic LOW BACK PAIN,M54.5. TECHNIQUE: Imaging Protocol: Axial computed tomography images with coronal and sagittal reformatted images were created and reviewed COMPARISON: CR XR lumbar spine complete from 02/16/2019 FINDINGS: Bones: The last intervertebral disc space is designated the L5/S1 level for the numbering purpose of this examination. Disc heights are well maintained. Endplate osteophytes are seen from L2-3 through L5-S1. Degenerative facet arthropathy is seen from L2-3 through L5-S1. Alignment is satisfactory. No spondylolysis or spondylolisthesis. No fracture is seen. T12-L1: No disc herniations or bulges are present. No significant central spinal canal stenosis. N o significant neural foraminal stenosis. L1-2: No disc herniations or bulges are present. No significant central spinal canal stenosis. No significant neural foraminal stenosis. L2-3: Mild diffuse disc bulge. No significant central spinal canal stenosis. Mild bilateral neural foraminal stenosis. L3-4: Mild diffuse disc bulge. No significant central spinal canal stenosis. Moderate left neural foraminal stenosis. Mild right neural foraminal stenosis. L4-5: Mild diffuse disc bulge. No significant central spinal canal stenosis. [id number] bila teral neural foraminal stenosis. L5-S1: No disc herniations or bulges are present. No significant central spinal canal stenosis. No significant neural foraminal stenosis. Soft Tissues: The visualized SI joints and sacrum are will maintained. The paraspinal soft tissues a re unremarkable. Atherosclerosis. IMPRESSION: Multilevel degenerative changes in the lumbar spine as described above. RADIATION DOSE DELIVERED: 910.37mGy.cm Total DLP 910.37mGy.cm Total DLP DATA REPOSITORY: All CT scans at this facility are submitted to the National Radiology Data Registry (NRDR) Dose Index Registry (DIR) with the [employer] (A[employer]). RADIATION OPTIMIZATION: All CT scans at this facility use at least one of these dose optimization te chniques: automated exposure control; mA and/or kV adjustment per patient size (includes targeted exa ms where dose is matched to clinical indication); or iterative reconstruction.
== END 2020-05-04 04:36 ==
PROVIDERS: PCP Nurse Practitioner; Visit Provider Nurse Practitioner
DX: M47.816 Spondylosis without myelopathy or radiculopathy, lumbar region (principal)
CPT/HCPCS: 72131

== ENCOUNTER 2020-05-25 04:50 | Outpatient (CLI) | payer MEDICAID, SELFPAY ==
[2020-05-25 12:28] LABS: C-Reactive Protein 0.43 mg/dL (0.0-0.3)
[2020-05-25 14:25] LABS: ESR 8 mm/hr (1-20)
[2020-05-25 16:52] LABS: Rheumatoid Factor <8.6 IU/mL (<12.0)
[2020-05-28 11:20] LABS: Lyme Ab w Rflx to Lyme Confirm Negative (Negative)
[2020-05-28 14:30] LABS: ANA Interpretation Positive (Negative); ANA Titer Pattern 1:320 Homogeneous
== END 2020-05-25 05:10 ==
PROVIDERS: PCP Nurse Practitioner; Visit Provider Nurse Practitioner
DX: G47.33 Obstructive sleep apnea (adult) (pediatric) (principal); M79.18 Myalgia, other site; R76.0 Raised antibody titer
CPT/HCPCS: 36415; 85652; 86038; 86140; 86431; 86618

== ENCOUNTER 2020-09-06 00:52 | Outpatient (CLI) | payer MEDICAID, SELFPAY ==
--- NOTE | 2020-09-06 07:00 | DI.NM_ITS ---
APPROVED REPORT Exam: Pharmacologic Patient Location: Out-Patient Room/Bed: Stress Nurse: Aspen Graves RN Ordering Provider:FABIAN JADA, Contact Number: [phone] BMI: 40.68 Baseline Rhythm: 1DHB, Bradycardia Indications: DM, ATYPICAL CHEST PAIN, SLEEP APNEA. Medical History Medical History: CHERYLE (No CPAP), DM II, HTN, GERD, HLD, Peripheral neuropathy, DDD Cardiac Medications: Fish oil, Glipizide, Januvia, Metoprolol succinate, Pantoprazole, Sitagliptin, V alsartan, Allergies: Gabapentin, Pregabalin, Metformin Cardiac Risk Factors: HTN, Hyperlipidemia, DM, FHX of CAD, Smoking (former), Obesity Previous Cardiac Procedures: None. Pretest Chest Pain Characteristics: Atypical angina (/10 sternal chest discomfort) Exercise History: Sedentary Physical Disabilities: Ankle pain. Lung Sounds: Clear to auscultation, diminished Heart Sounds: Regular Stress Test Details Test: Exercise stress converted to ambulatory pharmacologic stress due to failure to obtain a diagno stic stress test. Reason for pharmacologic stress test: physical limitation. Nuclear Acquisition: Rest Tc-99m/Stress Tc-99m 1 day Rest Isotope: Tc-99m Sestamibi. Dose: 14.7 Date: 09/06/20 Injection Time: 1130 Stress Isotope: Tc-99m Sestamibi. Dose: 44.5 Date: 09/06/20 Injection Time: 1430 HR Resting HR Supine: 58 bpm Max Heart Rate (APMHR): 162 bpm Resting HR Standin bpm Target HR (85% APMHR): 137 bpm Max HR Achieved: 106 bpm % of APMHR: 65 Recovery HR: 71 bpm HR response to stress: Normal HR response to stress Comment: beta cynthia held for 24 hours. BP Resting BP Supine: 132/86 mmHg Resting BP Standin/80 mmHg Max BP: 170/70 mmHg Recovery BP: 128/78 mmHg BP response to stress: Normal blood pressure response to stress. ECG Resting ECst degree AV block, Sinus Bradycardia Ectopy: None Stress ECG: Sinus Tachycardia ST Change: No significant ST segment changes noted Arrhythmia: None Recovery ECst degree AV block Recovery ST Change: No significant ST segment changes noted Recovery ST Deviation: 0.5 mm Recovery Arrhythmia: None Clinical Reason for Termination: Ankle pain Stress Symptoms: Dyspnea, Ankle pain Exercise duration: 5 min42 sec Highest Stage Reached: Stage 2: 2.5 mph at 12% grade. Exercise capacity: 7.29 METs [place] Treadmill Score: 3 Rate Pressure Product: [id number] Stress ECG Conclusion 1. Is an exercise stress test converted to a pharmacological stress test due to ankle pain. 2. The patient exercised for 5 minutes (7 METS). 3. There was no evidence of ischemia on the ECG portion of the exam. [place] Treadmill Score is 3 which is Moderate risk. Stress Test Summary STAGE Time (mins) Speed (mph) Grade (%) HR BP SYMPTOMS METS Supine 58 132/86 Standing 63 132/80 1 3 1.7 10 98 150/78 4.6 2 6 2.5 12 97%, Ankle pain 7 1 min post Lexiscan injection 97 170/70 3 min post Lexiscan injection 71 138/80 6 min post Lexiscan injection 71 150/88 9 min post Lexiscan injection 68 128/78 Balwinder protocol converted to walking lexiscan injection due to significant ankle pain. MPI Conclusion The patient's ejection fraction was 51% with stress. There were no wall motion abnormalities. There was no evidence of ischemia on the imaging portion of the exam. This represents a normal SPECT stress test.
--- NOTE | 2020-09-06 10:19 | DI.US_ITS ---
APPROVED REPORT EXAM: Comprehensive 2D, Doppler, and color-flow Echocardiogram Patient Location: Out-Patient [place] Boatman: Elizabeth Kerns RDCS (AE) Indications: Chest pain at rest, Sleep apnea, Diabetes Other Information Study Quality: Fair. Technically limited study due to body habitus. Conclusion Left Ventricle : The left ventricle is normal size. The left ventricular systolic function is normal. The left ventricular ejection fraction is within the normal range. There is normal left ventricular wall thickness. There is normal LV segmental wall motion. LVEF is 55-58%. Right Ventricle : Right ventricle is not well visualized. The right ventricular systolic function is normal. The RVSP is 24.1 mmHg. Atria : The left atrium size is normal. The right atrium size is normal. Valves: There is no significant valve disease. Great Vessels : Aortic root is mildly dilated. The ascending aorta is mildly dilated. Aortic arch is normal in caliber. IVC is normal in size and collapses >50% with inspiration. Compared to study from 07/17/2014, there is no significant change. Wall motion Left Ventricle The left ventricle is normal size. The left ventricular systolic function is normal. The left ventric ular ejection fraction is within the normal range. There is normal left ventricular wall thickness. T here is normal LV segmental wall motion. The left ventricular diastolic function is normal. There is no ventricular septal defect visualized. LVEF is 55-58%. Right Ventricle Right ventricle is not well visualized. The right ventricular systolic function is normal. The RVSP i s 24.1 mmHg. Atria The left atrium size is normal. The right atrium size is normal. The interatrial septum is intact wit h no evidence for an atrial septal defect. Aortic Valve The Aortic valve is sclerotic. Aortic valve is trileaflet. There is no aortic valvular stenosis. No a ortic regurgitation is present. Mitral Valve Mild mitral annular calcification. No evidence of mitral valve stenosis. Trace mitral regurgitation. Tricuspid Valve The tricuspid valve is normal in structure. There is no tricuspid valve stenosis. Trace tricuspid reg urgitation. Pulmonic Valve Pulmonic valve is not well visualized. There is no pulmonic valvular stenosis. There is no pulmonic v alvular regurgitation. Great Vessels Aortic root is mildly dilated. The ascending aorta is mildly dilated. Aortic arch is normal in calibe r. IVC is normal in size and collapses >50% with inspiration. Pericardium There is no pericardial effusion. 2D Dimensions IVSD d PLAX 0.82 cm M: 0.6-1.2 LV Vol A2C d MOD 111.9 mL LVPW d PLAX 0.89 cm M: 0.6 - 1.2 LV Vol A4C d MOD 113.3 mL LVID d PLAX 5.53 cm M: 4.2 - 5.8 LA vol/ BSA A4C s A-L 11.0 mL/m2 LVDs 3.80 cm M: 2.5 - 4.0 LA Area A4C s MOD 12.45 cm2 Ao Root d 3.85 cm M: 3.1 - 3.7 LV EF A4C MOD 58.0 % RA Area A4C 13.65 cm2 LV EF A2C MOD 54.5 % RA Vol/ BSA A4C s A-L 13.3 mL/m2 LV EF Biplane MOD 54.9 % Ao Asc Diam d 3.81 cm M: 2.6 - 3.4 SV 62.94 mL LV EF Teichholz 58.4 % SV Index 24.87 mL/m2 LVEF (Pope's) 54.89 % M: 52 - 72 LV Volume 79.98 mL M: 62 - 150 LV Volume Index 31.61 mL/m2 M: 34 - 74 LV Vol Biplane MOD 114.7 mL FS 31.15 % M-Mode TAPSE 1.97 cm (M/F) >1.7 LV Diastology MV E' medial 0.069 (>0.07 m/s) E/A Ratio 0.8 LV E/e MED 8.35 (<14) MV E Vmax 0.58 (0.4-1.3 m/s) MV E' lateral 0.065 (>0.1 m/s) MV A Vmax 0.70 (0.4-1.3 m/s) LV E/e LAT 8.85 (<14) MV E/A Ratio 0.80 MV E/E' medial 8.36 MV E/E' lateral 8.89 Aortic Valve LVOT Area 3.14 cm2 AoV Area Vmax 2.07 cm2 LVOT Vmax 0.94 m/s AoV Area/ BSA (Vmax) 0.82 cm2/m2 LVOT Mean Earl. 0.74 m/s GIULIA Mean Earl. 2.11 cm2 LVOT Peak Grad 3.5 mmHg GIULIA Mean Earl. Index 0.83 cm2/m2 LVOT Mean Grad 2.3 mmHg LVOT VTI 0.216 m LVOT Diam s 1.95 cm AoV Vmax 1.42 m/s Velocity Ratio 0.66 AoV Mean Earl. 1.09 m/s AoV Peak Grad 8.1 mmHg LVOT SV 67.89 mL AoV Mean Grad 5.1 mmHg AoV VTI 0.303 m AoV Area VTI 2.24 cm2 AoV Area/ BSA (VTI) 0.89 cm/m2 Mitral Valve MV DT 267 (160-240 msec) MV PHT 78 msec MV Area PHT 2.84 cm2 MV VTI 0.339 m MV VTI Annulus 0.349 m MV Area VTI 2.07 (4.0-6.0 cm2) Pulmonary Valve PV Vmax 0.86 (0.5-1.5 m/s) RVOT Peak Gr. 1.49 mmHg PV Peak Grad 2.9 mmHg RVOT Mean Gr. 0.70 mmHg PV Mean Grad 1.4 mmHg RVOT VTI 0.146 m PV VTI 0.176 m RVOT Vmax 0.61 m/s Tricuspid Valve TR Peak Grad 21.1 mmHg TR Vmax 2.30 m/s RA Pressure 3.00 mmHg RVSP (TR) 24.1 mmHg
[2020-09-06] MEDS: Regadenoson 0.4 MG/5 ML SYR IVP (14:28)
== END 2020-09-06 01:12 ==
PROVIDERS: PCP Nurse Practitioner; Visit Provider Nurse Practitioner
DX: R07.9 Chest pain, unspecified (principal); G47.33 Obstructive sleep apnea (adult) (pediatric); R93.9 Diagnostic imaging inconclusive due to excess body fat of patient; I77.810 Thoracic aortic ectasia; E11.9 Type 2 diabetes mellitus without complications; I10 Essential (primary) hypertension; E78.5 Hyperlipidemia, unspecified; Z82.49 Family history of ischemic heart disease and other diseases of the circulatory system; F17.210 Nicotine dependence, cigarettes, uncomplicated; E66.9 Obesity, unspecified
CPT/HCPCS: 78452; 93017; 93306; J2785

== ENCOUNTER 2020-10-03 03:11 | Outpatient (CLI) | payer MEDICAID, SELFPAY ==
[2020-10-04 12:52] LABS: dsDNA Ab, IgG 22.1 IU/mL (<30.0)
[2020-10-04 12:57] LABS: SS-A Antibody 1.2 Units (<20.0)
[2020-10-04 13:01] LABS: SS-B (La) Ab, IgG 1.7 Units (<20.0)
[2020-10-04 13:55] LABS: ANA Interpretation Positive (Negative); ANA Titer Pattern 1:320 Homogeneous
[2020-10-04 15:05] LABS: RNP Ab, IgG 3.2 Units (<20.0)
[2020-10-04 15:14] LABS: Sm (Smith) Ab, IgG 1.8 Units (<20.0)
== END 2020-10-03 03:12 | disposition home or self-care (01) ==
LOC: LBO 03:11
PROVIDERS: PCP Nurse Practitioner; Visit Provider Nurse Practitioner
DX: R53.83 Other fatigue (principal); M79.18 Myalgia, other site; M25.69 Stiffness of other specified joint, not elsewhere classified; Z01.84 Encounter for antibody response examination
CPT/HCPCS: 36415; 86038; 86225; 86235

== ENCOUNTER 2020-11-29 13:03 | Outpatient (REF) | payer MEDICAID, SELFPAY ==
[2020-12-04 12:47] LABS: Helicobacter pylori Ag, Feces Negative (Negative)
== END 2020-11-29 13:04 | disposition home or self-care (01) ==
LOC: LBN 13:03
PROVIDERS: PCP Nurse Practitioner; Visit Provider Nurse Practitioner
DX: K21.9 Gastro-esophageal reflux disease without esophagitis (principal)
CPT/HCPCS: 87338

== ENCOUNTER 2020-11-30 03:11 | Outpatient (CLI) | payer MEDICAID, SELFPAY ==
[2020-11-30 13:37] LABS: ALT 53 U/L (16-63); AST 32 U/L (15-37); Alkaline Phosphatase 117 U/L (46-116); Anion Gap 9.5 mmol/L (3-11); BUN 19 mg/dL (7-18); Bilirubin, Total 1.1 mg/dL (0.2-1.0); CO2 27.5 mmol/L (21.0-32.0); Calcium 9.1 mg/dL (8.5-10.1); Chloride 106 mmol/L (98-107); Glucose 145 mg/dL (74-106); Potassium 4.3 mmol/L (3.5-5.1); Sodium 143 mmol/L (136-145); Total Protein 7.1 g/dL (6.4-8.2)
== END 2020-11-30 03:12 | disposition home or self-care (01) ==
LOC: LBO 03:11
PROVIDERS: PCP Nurse Practitioner; Visit Provider Nurse Practitioner
DX: R79.89 Other specified abnormal findings of blood chemistry (principal)
CPT/HCPCS: 36415; 80053

== ENCOUNTER 2020-12-18 02:46 | Outpatient (CLI) | payer MEDICAID, SELFPAY ==
--- NOTE | 2020-12-18 08:45 | DI.MRI_ITS ---
Exam(s) MR LUMBAR SPINE WO EXAM: MR LUMBAR SPINE WO CLINICAL HISTORY: chronic LBP, B anterior thigh numb,WORSENING SYMPTOMS,R20.0,M54.5. TECHNIQUE: Multiplanar multisequence MRI of the Lumbar spine was performed. COMPARISON: CR XR lumbar spine complete from 02/16/2019 CR XR lumbar spine complete from 02/16/2019 FINDINGS: Bones: The last intervertebral disc space is designated the L5/S1 level for the numbering purpose of this examination. The vertebral body heights are well maintained. There is partial sacralization o f the left aspect of L5. Alignment is satisfactory. Mild degenerative endplate signal changes are see n at L4-5. There is a hemangioma or fatty rest in the L4 vertebral body. Cord: The conus tip ends at the T12 level. It is of normal size and signal intensity. T12-L1: No disc herniations or bulges are present. No central spinal canal or neural foraminal stenos is. L1-2: No disc herniations or bulges are present. No central spinal canal or neural foraminal stenosis . L2-3: No disc herniations or bulges are present. No central spinal canal or neural foraminal stenosis . L3-4: There is disc desiccation. There is a diffuse disc bulge present. There are degenerative richter ges of the facets. No significant central spinal canal stenosis. Mild left neural foraminal narrowi ng is seen. L4-5: There is disc desiccation. There is a small central disc herniation. There are degenerative c hanges of the facets. No significant central spinal canal stenosis. Mild right neural foraminal lianet rowing is noted. L5-S1: No disc herniations or bulges are present. There are degenerative changes of the facets. No central spinal canal or neural foraminal stenosis. Soft tissues: The visualized SI joints and sacrum are well maintained. The paraspinal soft tissues ar e unremarkable. IMPRESSION: Multilevel degenerative changes in the lumbar spine as described above. DATA REPOSITORY:
== END 2020-12-18 03:06 ==
PROVIDERS: PCP Nurse Practitioner; Visit Provider Nurse Practitioner
DX: M47.816 Spondylosis without myelopathy or radiculopathy, lumbar region (principal); R20.0 Anesthesia of skin
CPT/HCPCS: 72148

== ENCOUNTER 2021-01-31 09:11 | Outpatient (CLI) | payer MEDICAID, SELFPAY ==
--- NOTE | 2021-01-31 08:30 | DI.RAD_ITS ---
Exam(s) XR HAND LT COMPLETE EXAM: XR HAND LT COMPLETE CLINICAL HISTORY: Left hand joint pain fingers 1-4 x 1 week, M25.50, M79.642. TECHNIQUE: 2D digital imaging was performed. COMPARISON: No exams were available for comparison FINDINGS: There is no evidence of fracture or dislocation. No radiopaque foreign body. No osseous lesions nor erosions evident. Bone density appears normal. IMPRESSION: DATA REPOSITORY: RADIATION DOSE DELIVERED:
== END 2021-01-31 09:31 ==
PROVIDERS: PCP Nurse Practitioner; Visit Provider Nurse Practitioner
DX: M79.642 Pain in left hand
CPT/HCPCS: 73130

== ENCOUNTER 2021-04-08 02:47 | Outpatient (CLI) | payer MEDICAID, SELFPAY ==
[2021-04-08 11:49] LABS: ALT 40 U/L (16-63); AST 22 U/L (15-37); Alkaline Phosphatase 112 U/L (46-116); Anion Gap 7.1 mmol/L (3-11); BUN 21 mg/dL (7-18); Bilirubin, Total 0.7 mg/dL (0.2-1.0); CO2 29.9 mmol/L (21.0-32.0); CREATININE 0.9 mg/dL (0.70-1.30); Calcium 8.8 mg/dL (8.5-10.1); Calculated LDL 55 mg/dL (<100); Chloride 107 mmol/L (98-107); Cholesterol 118 mg/dL (<200); Glucose 145 mg/dL (74-106); HDL Cholesterol 39 mg/dL (40-60); Potassium 4.4 mmol/L (3.5-5.1); Sodium 144 mmol/L (136-145); Total Protein 7.1 g/dL (6.4-8.2); Triglyceride 120 mg/dL (<150)
== END 2021-04-08 02:48 | disposition home or self-care (01) ==
LOC: LBO 02:47
PROVIDERS: PCP Nurse Practitioner; Visit Provider Nurse Practitioner
DX: I10 Essential (primary) hypertension (principal); E11.40 Type 2 diabetes mellitus with diabetic neuropathy, unspecified
CPT/HCPCS: 36415; 80053; 80061

== ENCOUNTER 2021-04-18 15:07 | Outpatient (CLI) | payer MEDICAID, SELFPAY ==
--- NOTE | 2021-04-18 10:45 | DI.RAD_ITS ---
Exam(s) XR HAND RT COMPLETE EXAM: XR HAND RT COMPLETE CLINICAL HISTORY: right hand pain. TECHNIQUE: 2D digital imaging was performed. COMPARISON: CR XR HAND LT COMPLETE from 01/31/2021 FINDINGS: Three views of the right hand reveal no evidence of acute fracture or dislocation. No abnormal soft tissue calcifications. No osseous lesions nor erosions evident. Bone density appears normal. No si gnificant osseous lesions. IMPRESSION: No significant findings DATA REPOSITORY: RADIATION DOSE DELIVERED:
== END 2021-04-18 15:08 | disposition home or self-care (01) ==
LOC: DIORS 15:07
PROVIDERS: PCP Nurse Practitioner; Referring Provider Nurse Practitioner; Visit Provider Student in an Organized Health Care Education/Training Program
DX: M79.641 Pain in right hand (principal); M79.642 Pain in left hand; E11.42 Type 2 diabetes mellitus with diabetic polyneuropathy; R20.2 Paresthesia of skin; R20.0 Anesthesia of skin
CPT/HCPCS: 99213; 73130

== ENCOUNTER 2021-07-31 02:36 | Outpatient (CLI) | payer MEDICAID, SELFPAY ==
[2021-07-31 12:19] LABS: Hemoglobin A1C 6.1 % (<5.7)
[2021-07-31 12:40] LABS: ALT 48 U/L (16-63); AST 22 U/L (15-37); Albumin 4.3 g/dL (3.4-5.0); Alkaline Phosphatase 115 U/L (46-116); Anion Gap 6.6 mmol/L (3-11); BUN 19 mg/dL (7-18); Bilirubin, Total 0.5 mg/dL (0.2-1.0); CO2 28.4 mmol/L (21.0-32.0); Calcium 9.4 mg/dL (8.5-10.1); Chloride 105 mmol/L (98-107); Glucose 177 mg/dL (74-106); Potassium 4.3 mmol/L (3.5-5.1); Sodium 140 mmol/L (136-145); Total Protein 7.5 g/dL (6.4-8.2)
== END 2021-07-31 02:37 | disposition home or self-care (01) ==
LOC: LBO 02:36
PROVIDERS: PCP Nurse Practitioner; Visit Provider Nurse Practitioner
DX: E11.40 Type 2 diabetes mellitus with diabetic neuropathy, unspecified
CPT/HCPCS: 36415; 80053; 83036

== ENCOUNTER 2021-09-09 02:37 | Outpatient (CLI) | payer MEDICAID, SELFPAY ==
[2021-09-09 12:40] LABS: Source Nasal/Nares
[2021-09-09 16:06] LABS: COVID-19 PCR Negative (Negative)
== END 2021-09-09 02:38 | disposition home or self-care (01) ==
LOC: LBO 02:37
PROVIDERS: PCP Nurse Practitioner; Visit Provider Student in an Organized Health Care Education/Training Program
DX: Z20.822 Contact with and (suspected) exposure to COVID-19 (principal); Z01.818 Encounter for other preprocedural examination
CPT/HCPCS: 87635

== ENCOUNTER 2021-09-11 08:26 | Day surgery (SDC) | payer MEDICAID, SELFPAY ==
[2021-09-11 08:36] VITALS: BP 130/88; PULSE 73; RESP 16; TEMP 36.2; O2SAT 98
[2021-09-11] MEDS: Lactated Ringers 1,000 ML 80 ML IV (09:10)
--- NOTE | 2021-09-11 09:19 | W.ANESPRE ---
General Info Date of Service Date Performed: 09/11/21 Height: 6 ft Weight: 125.8 kg Body Mass Index (BMI): 37.5 Surgical Procedure: Operation Date: 09/11/21 12:25 Proposed Procedure Side Surgeon p Wrist ECTR & Cubital Tunnel Release Right Tanner Gamez MD s Cubital Tunnel Release Right Tanner Gamez MD Meds Allergies and Home Medications Allergies Allergy/AdvReac Type Severity Reaction Status Date / Time pregabalin [From Lyrica] AdvReac Mild 10/27/2016 Verified 09/11/21 08:54 lower extremity edema metformin AdvReac elevated Verified 09/11/21 08:54 creatinine Home Medication Medication Instructions Recorded ascorbic acid (vitamin C) 1,000 mg 2,000 mg PO DAILY 04/12/14 tablet vitamin B complex 1 ea PO DAILY 12/30/16 lysine 500 mg tablet (L-Lysine) 1,000 mg PO DAILY tab 08/31/18 blood-glucose meter (FreeStyle #1 ea 10/02/20 Lite Meter) blood sugar diagnostic (FreeStyle #100 ea 10/03/20 Test) blood-glucose meter #1 ea 10/03/20 lancets #100 ea 10/03/20 naloxone 4 mg/actuation nasal 4 mg INTRANASAL Q2M PRN #2 ea 11/22/20 spray (Narcan) ibuprofen 800 mg tablet 800 mg PO TID PRN #90 tab 04/22/21 pantoprazole 40 mg tablet,delayed 40 mg PO DAILY #90 tab 07/15/21 release dulaglutide 1.5 mg/0.5 mL 1.5 mg (0.5 mL) SUBCUT QWEEK #12 07/24/21 subcutaneous pen injector syrg (Trulicity) glipizide 10 mg tablet, extended 10 mg PO DAILY #90 tab 08/12/21 release 24 hr methadone 10 mg tablet 15 mg PO TID #135 tab MDD 45mg 08/12/21 Current Visit Medications: Current Medications Generic Name Dose Route Start Last Admin Trade Name Freq PRN Reason Stop Dose Admin Acetaminophen 1,000 mg 09/11/21 06:00 Acetaminophen 500 Mg Tab PO 09/11/21 16:00 PREOP ZOHREH Celecoxib 400 mg 09/11/21 06:00 Celecoxib 200 Mg Cap PO 09/11/21 16:00 PREOP ZOHREH Ringer's Solution 1,000 mls @ 80 mls/hr 09/11/21 06:00 09/11/21 09:10 IV 10/10/21 23:59 80 mls/hr INFUSION ZOHREH Administration Cefazolin Sodium 3,000 mg/ 100 mls @ 200 mls/hr 09/11/21 06:00 Sodium Chloride IVPB 09/11/21 18:00 PREOP ZOHREH IV Miscellaneous Supplies 1 each 09/11/21 06:00 Iv Access IV 10/10/21 23:59 DIRECTED ZOHREH Sodium Chloride 0 ml 09/11/21 06:00 Normal Saline Flush 10 Ml Syr IV 10/10/21 23:59 PRN PRN Sodium Chloride 0 ml 09/11/21 06:00 Normal Saline 10 Ml Vial IJ 10/10/21 23:59 DIRECTED PRN Sterile Water 0 ml 09/11/21 06:00 Water,Injection,Sterile 10 Ml Vial IJ 10/10/21 23:59 DIRECTED PRN PFSH Active Problems Active Problems: Problem Status Onset Code Constipation K59.00 Lower abdominal pain R10.30 Cubital tunnel syndrome, bilateral G56.23 Bilateral carpal tunnel syndrome G56.03 SARS-CoV-2 positive ~05/2021 U07.1 Ulnar neuropathy G56.20 Right hand pain M79.641 Ulcer of toe of left foot L97.529 Left hand pain M79.642 Joint pain M25.50 Salcido's esophagus without dysplasia ~11/2020 K22.70 Low back pain M54.5 Numbness of anterior thigh R20.0 GERD (gastroesophageal reflux disease) K21.9 Abnormal blood chemistry R79.9 Chronic pain G89.29 Type 2 diabetes mellitus with diabetic neuropathy, unspecified E11.40 Fatigue R53.83 Chest pain at rest R07.9 Nail abnormality L60.9 Toe ulcer L97.509 Joint stiffness M25.60 History of elevated antinuclear antibody (VY) Z87.898 Statin declined Z53.20 Noncompliance with CPAP treatment Z91.14 Skin lesion L98.9 Musculoskeletal pain M79.18 Penile discharge R36.9 Pelvic pain in male R10.2 Yeast dermatitis of penis B37.49 Uncontrolled diabetes mellitus E11.65 Muscle spasm M62.838 Toe infection L08.9 Chronic low back pain M54.5, G89.29 Helicobacter pylori infection 1125/15 A04.8 Gallstones K80.20 Acromioclavicular joint arthritis M19.019 Type 2 diabetes mellitus with diabetic neuropathy 10/26/15 E11.40 Right knee pain 06/06/15 M25.561 Painful diabetic neuropathy 04/15/17 E11.40 CHERYLE (obstructive sleep apnea) 03/31/17 G47.33 Numbness and tingling in left arm 08/16/15 R20.0, R20.2 Hypertriglyceridemia, essential 05/23/15 E78.1 Essential (primary) hypertension 05/02/14 I10 Esophagitis 01/18/18 K20.9 Degenerative joint disease of cervical spine 09/05/15 M47.812 Chronic diarrhea 05/09/15 K52.9 Barretts esophagus 08/08/15 K22.70 Acid reflux 05/09/[address] 08/18/16 R93.8 Chest discomfort 05/02/14 R07.89 Medical History Medical History Essential hypertension GERD (gastroesophageal reflux disease) History of Helicobacter pylori infection Medical History Comments:: pt reports young son had a reaction to anesthesia, woke up swinging: Pt reports he has sleep apnea. Pt has a CPAP but doesnt use it. Surgical History Surgical History Arthroplasty of knee (08/14/15) right knee arthroscopy w/partial posteriolateral menisectomy: limited medial femoral chondroplasty Dr Rascon Colonoscopy - IV Sedation (04/20/15) DR.TERRY BARILLAS H/O colonoscopy (~07/24/21) 07/24/21 [facility] H/O endoscopy (~07/24/21) 07/24/21 [facility] Tobacco Smoking/Tobacco Use Status: Former Tobacco Use Alcohol Alcohol Intake: current Alcohol intake frequency: a few times a week Alcohol type: beer and hard liquor Details: couple shots, couple beers a few times a week, more if its a bad day Substance Use Substance use: Daily Substance use type: marijuana Details: for pain as well as CBD oil. Pt reports eating one big chunk edibles yesterday 09/10/21 Vital Signs and Lab Results Vital Signs Most Recent Vital Signs in EMR: Most Recent Vital Signs Temp Pulse Resp BP Pulse Ox 36.2 C L 73 16 130/88 98 09/11/21 08:36 09/11/21 08:36 09/11/21 08:36 09/11/21 08:36 09/11/21 08:36 Point of Care Results Point of Care Results: Finger Stick Blood Glucose 107 09/11/21 08:38 Lab Results Blood Type / Crossmatch: No Data to Display Complete Blood Count: No Data to Display Complete Metabolic Panel: No Data to Display Liver Function Panel: No Data to Display Coagulation Panel: No Data to Display Cardiac Panel: No Data to Display Arterial Blood Gas: No Data to Display Venous Blood Gas: No Data to Display Pancreas Panel: No Data to Display Thyroid Panel: No Data to Display Infectious Disease: Coronavirus (COVID-19)(PCR) Negative (Negative) 09/09/21 10:48 09/09/21 Coronavirus 2019 Source Nasal/Nares 09/09/21 10:48 09/09/21 Blood Cultures: No Data to Display Toxicology Panel: No Data to Display Anesthesia Assessment and Plan Anesthesia History Personal History: No History of Anesthesia Complications Family History: Other (Emergence Delerium for son as an / toddler with ENT/cleft palate) Exercise Tolerance Exercise Tolerance: Metabolic Equivalents>4 Pertinent Negatives Pertinent Negatives: No Symptoms of GERD (Well controlled with hot tea (twig tree)), No Major Cardiovascular Symptoms or Complaints (Anxiety attack ), No Major Pulmonary Symptoms or Complaints (Smokes marijuana daily, CHERYLE does not CPAP) and No History of CVA/TIA Cardiac & Pulmonary Exam Cardiac Exam: Normal S1/S2 Heart Sounds Pulmonary Exam: Clear Bilateral Breath Sounds Implantable Cardiac Device Does patient have a Pacemaker or an ICD?: No Airway Exam Known Difficult Airway: No Mallampati Class: 1 Mouth Opening: Normal (> 3cm) Thyromental Distance: Greater than 3 cm Neck Range of Motion: Full ROM Neck Circumference: Normal Teeth Condition: Normal Dentition ASA Classification ASA Score: ASA 2 Emergency Case?: No NPO Status NPO Status: NPO Clears >2 hours, Solids >8 hours Anesthesia Plan Resuscitation Status: Full Code Anesthesia Technique: General Anesthesia Airway Planned: LMA Monitors Used: Standard Monitors
[2021-09-11 09:29] VITALS: BMI 37.5
--- NOTE | 2021-09-11 09:49 | PDOC.DSDIS_ITS ---
Discharge Plan Disposition Patient Disposition: HOME Condition: Good Discharge Details Reason For Visit: R ECTR/R trigger thumb release Attending Provider: Tanner Gamez Primary Care Provider: Mervat Garner Home Meds and New Rx's Prescriptions: New hydrocodone-acetaminophen 5-325 mg tablet 1 tab PO Q6H PRN (Reason: pain) Qty: 8 0RF acetaminophen 500 mg tablet 1,000 mg PO TID Qty: 90 0RF ibuprofen 600 mg tablet 600 mg PO TID PRN (Reason: pain) Qty: 90 0RF Continued naloxone [Narcan] 4 mg/actuation spray,non-aerosol 4 mg intranasal Q2M PRN (Reason: opioid overdose) Qty: 2 5RF Rx Instructions: spray 1 dose into ONE nostril; alternate nostrils w each dose until help arrives (DME) blood-glucose meter [FreeStyle Lite Meter] Kit See Rx Instructions .ROUTE .MEDSUPPLY Qty: 1 0RF Rx Instructions: to test blood sugars tid, dx E11.9 to maintain HGB AIC below 7.0 Trulicity 1.5 mg/0.5 mL pen injector 1.5 mg subcut QWEEK Qty: 12 3RF vitamin B complex 1 EACH capsule 1 ea PO DAILY 0RF (DME) blood-glucose meter Misc See Rx Instructions .ROUTE .MEDSUPPLY Qty: 1 0RF Rx Instructions: Test TID, keep A1c under 8 (DME) FreeStyle Test Strip See Rx Instructions .ROUTE .MEDSUPPLY Qty: 100 12RF Rx Instructions: dx: E11.4 Test TID, keep A1c under 8 (DME) lancets Misc See Rx Instructions .ROUTE .MEDSUPPLY Qty: 100 12RF Rx Instructions: Test TID, keep A1c under 8 pantoprazole 40 mg tablet,delayed release (DR/EC) 40 mg PO DAILY Qty: 90 3RF methadone 10 mg tablet 15 mg PO TID MDD 45mg Qty: 135 0RF glipizide 10 mg tablet extended release 24hr 10 mg PO DAILY Qty: 90 3RF ascorbic acid (vitamin C) 1,000 MG tablet 2,000 mg PO DAILY 0RF lysine [L-Lysine] 500 mg tablet 1,000 mg PO DAILY 0RF Discontinued ibuprofen 800 mg tablet 800 mg PO TID PRN (Reason: pain) Qty: 90 3RF Discharge Instructions Stand Alone Forms: Anesthesia Discharge Inst[facility] [place] C. Tunnel Release, [place] T. Finger Release, [facility] [place] ([facility]) Referrals: Tanner Gamez MD [ [facility] STAFF PHYSICIAN] - Activity:: Activity as Tolerated Remove Dressings/Wound Care:: 48 hours Diet:: As Tolerated Discharge Orders Discharge Orders: Discharge Order (Routine); Ordered 09/11/21 Ordered By: Seth Acharya DS: Diagnosis Discharge Diagnosis (1) Right carpal tunnel syndrome: Status: Acute (2) Trigger thumb, right thumb: Status: Acute
[2021-09-11] MEDS: Celecoxib 200 MG CAP 400 MG PO (09:54)
[2021-09-11] MEDS: Acetaminophen 500 MG TAB 1000 MG PO (09:54)
--- NOTE | 2021-09-11 10:19 | W.PREOPHP ---
Documented by User: BRANDON Guzmán 09/11/21 10:22 Assessment and Plan Assessment and plan (1) Trigger thumb, right thumb: Status: Acute (2) Left carpal tunnel syndrome: Status: Acute Assessment and plan: R Trigger thumb release and R ECTR. History of Present Illness History of Present Illness Chief Complaint: R hand numbness and R thumb pain Narrative: Peng comes in today for a right trigger thumb release and right ECTR. He has had persistant pain and numbness in his rightr hand and thumb. He does not have any symptoms of numbness in his little finger or ring finger. He is anxious to proceed with a R ECTR and trigger thumb release. Pertinent Surgical Information Patient denies history of hypertension, CVA, MD, angina, asthma, COPD, renal or liver disorders, hepatitis, bleeding disorders, diabetes, immune or thyroid disorders. No complications from anesthesia. Review of Systems Constitutional Constitutional: Denies fever(s) ENT Ears, Nose, Mouth, and Throat: Denies dizziness and Denies sore throat Cardiovascular Cardiovascular: Denies chest pain, Denies palpitations and Denies dyspnea Respiratory Respiratory: Denies cough and Denies dyspnea Gastrointestinal Gastrointestinal: Denies abdominal pain, Denies melena, Denies hematochezia, Denies diarrhea, Denies nausea and Denies vomiting Genitourinary Genitourinary: Denies hematuria and Denies dysuria Neurologic Neurologic: Denies dizziness Endocrine Endocrine: Denies palpitations [facility] All Active Problems (Updated 09/11/21 @ 09:55 by BRANDON Guzmán) Trigger thumb, right thumb (Acute) S/P Release: 09/11/2021 Left carpal tunnel syndrome (Acute) Right carpal tunnel syndrome (Acute) S/P ECTR: 09/11/2021 Constipation (Acute) 08/07/21 [facility] note Lower abdominal pain (Acute) 08/07/21 [facility] note Cubital tunnel syndrome, bilateral (Acute) SARS-CoV-2 positive (Acute ~05/2021) Ulnar neuropathy (Acute) Right hand pain (Acute) Ulcer of toe of left foot (Acute) Left hand pain (Acute) Joint pain (Acute) Salcido's esophagus without dysplasia (Acute ~11/2020) Low back pain (Acute) Numbness of anterior thigh (Acute) GERD (gastroesophageal reflux disease) (Chronic) Abnormal blood chemistry (Acute) Chronic pain (Chronic) Type 2 diabetes mellitus with diabetic neuropathy, unspecified (Acute) Fatigue (Acute) Chest pain at rest (Acute) Nail abnormality (Acute) Toe ulcer (Acute) Joint stiffness (Acute) History of elevated antinuclear antibody (VY) (Acute) Statin declined (Acute) Noncompliance with CPAP treatment (Acute) Skin lesion (Acute) Musculoskeletal pain (Acute) Penile discharge (Acute) Pelvic pain in male (Acute) Yeast dermatitis of penis (Acute) Uncontrolled diabetes mellitus (Acute) Muscle spasm (Acute) Toe infection (Acute) Chronic low back pain (Acute) Helicobacter pylori infection (Acute 05/09/15) Gallstones (Acute) Acromioclavicular joint arthritis (Chronic) With respect to his right hand I think he could undergo simple trigger thumb and trigger finger release with excellent results at his convenience with respect to his right shoulder his CT scan showed sternal clavicular degenerative changes which were mild but significant degenerative changes over the acromioclavicular joint I am uncertain as to whether or not he is feeling pain in his medial clavicle as it as a secondary phenomenon to limited range of motion in terms of axial rotation of the AC joint. It is possible that he still has primary sternoclavicular arthritis but the x-ray findings on CT scan are modest. I would recommend first trying to eliminate both quads allergies. I would start with iontophoresis in physical therapy over the sternoclavicular joint if this was ineffective then I would recommend a trial of Depo-Medrol injection of the sternoclavicular joint if neither of these were effective then I would recommend possibly resection of the distal clavicle. He is reluctant to have any type of corticosteroid but I explained to him that this is a different type of corticosteroid utilization compared to when he had systemic corticosteroids for a medical condition a few years ago at that time he had elevation of his A1c and he does not want that. I feel simple injection of Depo-Medrol would have minimal effect on his overall systemic glucose levels and iontophoresis would have almost no effect I will see him back in 3-4 weeks for follow-up Type 2 diabetes mellitus with diabetic neuropathy (Acute 10/26/15) Right knee pain (Acute 06/06/15) Painful diabetic neuropathy (Acute 04/15/17) CHERYLE (obstructive sleep apnea) (Acute 03/31/17) Numbness and tingling in left arm (Acute 08/16/15) Hypertriglyceridemia, essential (Acute 05/23/15) Essential (primary) hypertension (Acute 05/02/14) Esophagitis (Acute 01/18/18) GI [facility] Degenerative joint disease of cervical spine (Acute 09/05/15) C2-C3, C3-C4 with possible foraminal narrowing at C5-C6 and C6-C7 Chronic diarrhea (Acute 05/09/15) Barretts esophagus (Acute 08/08/15) [facility] consult 11/2015 --> pt declines injections & surgery Cervical MRI 10/2015 Acid reflux (Acute 05/09/15) GERD by EGD 01/18/[address] (Acute 08/18/16) Chest discomfort (Acute 05/02/14) Medical History (Updated 09/11/21 @ 09:55 by BRANDON Guzmán) Essential hypertension GERD (gastroesophageal reflux disease) History of Helicobacter pylori infection Surgical History (Updated 09/11/21 @ 09:55 by BRANDON Guzmán) Arthroplasty of knee (08/14/15) right knee arthroscopy w/partial posteriolateral menisectomy: limited medial femoral chondroplasty Dr Rascon Colonoscopy - IV Sedation (04/20/15) DR.TERRY BARILLAS H/O colonoscopy (~07/24/21) 07/24/21 [facility] H/O endoscopy (~07/24/21) 07/24/21 [facility] Family History Mother Substance abuse Diabetes Essential hypertension Heart disease Hyperlipidemia Mental disorder Other Chronic mental illness Social History (Updated 05/01/20 @ 10:53 by Sandrine Curry RN) Smoking/Tobacco Use Status: Former Tobacco Use Quit Date: 06/15/76 Smoking risk assessment performed?: Yes Alcohol Intake: current Alcohol Intake frequency: a few times a week Alcohol type: beer and hard liquor Details: couple shots, couple beers a few times a week, more if its a bad day Drug use: Daily Substance use type: marijuana Details: for pain as well as CBD oil. Pt reports eating one big chunk edibles yesterday 09/10/21 Household members: spouse and children Housing: house Number of Children: 2 current occupation: disabled What is your relationship status?: Panel score (0-1 are the most socially isolated patients): 1 What type of physical activity do you participate in: walking and additional Details: PT exercises Duration: 15-30 minutes/day Frequency: daily Do you feel safe at home: Yes Do you feel safe in your relationship?: Yes Meds Allergies and Home Medications Allergies Allergy/AdvReac Type Severity Reaction Status Date / Time pregabalin [From Lyrica] AdvReac Mild 10/27/2016 Verified 09/11/21 08:54 lower extremity edema metformin AdvReac elevated Verified 09/11/21 08:54 creatinine Home Medications Medication Instructions Recorded Confirmed Type ascorbic acid (vitamin C) 1,000 mg 2,000 mg PO DAILY 04/12/14 09/11/21 History tablet vitamin B complex 1 ea PO DAILY 12/30/16 09/11/21 History lysine 500 mg tablet (L-Lysine) 1,000 mg PO DAILY tab 08/31/18 09/11/21 History blood-glucose meter (FreeStyle #1 ea 10/02/20 08/08/21 History Lite Meter) blood sugar diagnostic (FreeStyle #100 ea 10/03/20 08/08/21 Rx Test) blood-glucose meter #1 ea 10/03/20 08/08/21 Rx lancets #100 ea 10/03/20 08/08/21 Rx naloxone 4 mg/actuation nasal 4 mg INTRANASAL Q2M PRN #2 ea 11/22/20 09/11/21 Rx spray (Narcan) pantoprazole 40 mg tablet,delayed 40 mg PO DAILY #90 tab 07/15/21 09/11/21 Rx release dulaglutide 1.5 mg/0.5 mL 1.5 mg (0.5 mL) SUBCUT QWEEK #12 07/24/21 09/11/21 Rx subcutaneous pen injector syrg (Trulicity) glipizide 10 mg tablet, extended 10 mg PO DAILY #90 tab 08/12/21 09/11/21 Rx release 24 hr methadone 10 mg tablet 15 mg PO TID #135 tab MDD 45mg 08/12/21 09/11/21 Rx acetaminophen 500 mg tablet 1,000 mg PO TID #90 tab 09/11/21 Rx hydrocodone 5 mg-acetaminophen 325 1 tab PO Q6H PRN #8 tab 09/11/21 Rx mg tablet ibuprofen 600 mg tablet 600 mg PO TID PRN #90 tab 09/11/21 Rx Exam Const General: cooperative and no acute distress Orientation: alert and awake HENMT Head: normocephalic and atraumatic Eyes Conjunctivae: conjunctivae normal Sclera: sclerae normal Resp Effort & Inspection: normal respiratory effort Auscultation: clear to auscultation bilaterally and no wheezes Cardio Rate: regular rate Rhythm: regular rhythm Heart Sounds: S1 normal, S2 normal and no murmurs Results Last Vital Signs Temp 97.2 F L 09/11/21 08:36 Pulse 73 09/11/21 08:36 Resp 16 09/11/21 08:36 BP 130/88 09/11/21 08:36 Pulse Ox 98 09/11/21 08:36 Documented by User: Tanner Gamez MD 09/11/21 10:24 Assessment and Plan Assessment and plan (1) Trigger thumb, right thumb: Status: Acute (2) Left carpal tunnel syndrome: Status: Acute Assessment and plan: R Trigger thumb release and R ECTR. I interviewed and examined the patient with Seth Acharya PA-C. I agree with the documentation as above. The assessment and plan were formulated with my direct involvement. Peng has numbness and tingling about both hands with pain at the thumbs. I had a long discussion with him this morning that the pain in his thumbs is not going to be relieved with cubital tunnel release. Since he is not having any numbness or tingling in the little finger or the ring finger at this time I think I would focus on the carpal tunnel. Additionally, the pain of his thumb seems to be related trigger thumb. He has pain over the MCP joint and is unable to fully flex the thumb. Therefore I recommended adding on a trigger thumb release. Therefore, we will do the endoscopic carpal tunnel release on the right side today along with a trigger thumb release. I reviewed the risk of the procedure to include bleeding, infection pain, stiffness with damage to nerves and vessels, damage to muscle tendons, incomplete release, recurrence. Despite these risk, he elects to proceed. Tanner Gamez MD [facility] All Active Problems (Updated 09/11/21 @ 09:55 by BRANDON Guzmán) Trigger thumb, right thumb (Acute) S/P Release: 09/11/2021 Left carpal tunnel syndrome (Acute) Right carpal tunnel syndrome (Acute) S/P ECTR: 09/11/2021 Constipation (Acute) 08/07/21 [facility] note Lower abdominal pain (Acute) 08/07/21 [facility] note Cubital tunnel syndrome, bilateral (Acute) SARS-CoV-2 positive (Acute ~05/2021) Ulnar neuropathy (Acute) Right hand pain (Acute) Ulcer of toe of left foot (Acute) Left hand pain (Acute) Joint pain (Acute) Salcido's esophagus without dysplasia (Acute ~11/2020) Low back pain (Acute) Numbness of anterior thigh (Acute) GERD (gastroesophageal reflux disease) (Chronic) Abnormal blood chemistry (Acute) Chronic pain (Chronic) Type 2 diabetes mellitus with diabetic neuropathy, unspecified (Acute) Fatigue (Acute) Chest pain at rest (Acute) Nail abnormality (Acute) Toe ulcer (Acute) Joint stiffness (Acute) History of elevated antinuclear antibody (VY) (Acute) Statin declined (Acute) Noncompliance with CPAP treatment (Acute) Skin lesion (Acute) Musculoskeletal pain (Acute) Penile discharge (Acute) Pelvic pain in male (Acute) Yeast dermatitis of penis (Acute) Uncontrolled diabetes mellitus (Acute) Muscle spasm (Acute) Toe infection (Acute) Chronic low back pain (Acute) Helicobacter pylori infection (Acute 05/09/15) Gallstones (Acute) Acromioclavicular joint arthritis (Chronic) With respect to his right hand I think he could undergo simple trigger thumb and trigger finger release with excellent results at his convenience with respect to his right shoulder his CT scan showed sternal clavicular degenerative changes which were mild but significant degenerative changes over the acromioclavicular joint I am uncertain as to whether or not he is feeling pain in his medial clavicle as it as a secondary phenomenon to limited range of motion in terms of axial rotation of the AC joint. It is possible that he still has primary sternoclavicular arthritis but the x-ray findings on CT scan are modest. I would recommend first trying to eliminate both quads allergies. I would start with iontophoresis in physical therapy over the sternoclavicular joint if this was ineffective then I would recommend a trial of Depo-Medrol injection of the sternoclavicular joint if neither of these were effective then I would recommend possibly resection of the distal clavicle. He is reluctant to have any type of corticosteroid but I explained to him that this is a different type of corticosteroid utilization compared to when he had systemic corticosteroids for a medical condition a few years ago at that time he had elevation of his A1c and he does not want that. I feel simple injection of Depo-Medrol would have minimal effect on his overall systemic glucose levels and iontophoresis would have almost no effect I will see him back in 3-4 weeks for follow-up Type 2 diabetes mellitus with diabetic neuropathy (Acute 10/26/15) Right knee pain (Acute 06/06/15) Painful diabetic neuropathy (Acute 04/15/17) CHERYLE (obstructive sleep apnea) (Acute 03/31/17) Numbness and tingling in left arm (Acute 08/16/15) Hypertriglyceridemia, essential (Acute 05/23/15) Essential (primary) hypertension (Acute 05/02/14) Esophagitis (Acute 01/18/18) [facility] Degenerative joint disease of cervical spine (Acute 09/05/15) C2-C3, C3-C4 with possible foraminal narrowing at C5-C6 and C6-C7 Chronic diarrhea (Acute 05/09/15) Barretts esophagus (Acute 08/08/15) [facility] consult 11/2015 --> pt declines injections & surgery Cervical MRI 10/2015 Acid reflux (Acute 05/09/15) GERD by EGD 01/18/[address] (Acute 08/18/16) Chest discomfort (Acute 05/02/14) Medical History (Updated 09/11/21 @ 09:55 by BRANDON Guzmán) Essential hypertension GERD (gastroesophageal reflux disease) History of Helicobacter pylori infection Surgical History (Updated 09/11/21 @ 09:55 by BRANDON Guzmán) Arthroplasty of knee (08/14/15) right knee arthroscopy w/partial posteriolateral menisectomy: limited medial femoral chondroplasty Dr Rascon Colonoscopy - IV Sedation (04/20/15) DR.TERRY BARILLAS H/O colonoscopy (~07/24/21) 07/24/21 [facility] H/O endoscopy (~07/24/21) 07/24/21 [facility] Family History Mother Substance abuse Diabetes Essential hypertension Heart disease Hyperlipidemia Mental disorder Other Chronic mental illness Social History (Updated 05/01/20 @ 10:53 by Sandrine Curry RN) Smoking/Tobacco Use Status: Former Tobacco Use Quit Date: 06/15/76 Smoking risk assessment performed?: Yes Alcohol Intake: current Alcohol Intake frequency: a few times a week Alcohol type: beer and hard liquor Details: couple shots, couple beers a few times a week, more if its a bad day Drug use: Daily Substance use type: marijuana Details: for pain as well as CBD oil. Pt reports eating one big chunk edibles yesterday 09/10/21 Household members: spouse and children Housing: house Number of Children: 2 current occupation: disabled What is your relationship status?: Panel score (0-1 are the most socially isolated patients): 1 What type of physical activity do you participate in: walking and additional Details: PT exercises Duration: 15-30 minutes/day Frequency: daily Do you feel safe at home: Yes Do you feel safe in your relationship?: Yes Meds Allergies and Home Medications Allergies Allergy/AdvReac Type Severity Reaction Status Date / Time pregabalin [From Lyrica] AdvReac Mild 10/27/2016 Verified 09/11/21 08:54 lower extremity edema metformin AdvReac elevated Verified 09/11/21 08:54 creatinine Home Medications Medication Instructions Recorded Confirmed Type ascorbic acid (vitamin C) 1,000 mg 2,000 mg PO DAILY 04/12/14 09/11/21 History tablet vitamin B complex 1 ea PO DAILY 12/30/16 09/11/21 History lysine 500 mg tablet (L-Lysine) 1,000 mg PO DAILY tab 08/31/18 09/11/21 History blood-glucose meter (FreeStyle #1 ea 10/02/20 08/08/21 History Lite Meter) blood sugar diagnostic (FreeStyle #100 ea 10/03/20 08/08/21 Rx Test) blood-glucose meter #1 ea 10/03/20 08/08/21 Rx lancets #100 ea 10/03/20 08/08/21 Rx naloxone 4 mg/actuation nasal 4 mg INTRANASAL Q2M PRN #2 ea 11/22/20 09/11/21 Rx spray (Narcan) pantoprazole 40 mg tablet,delayed 40 mg PO DAILY #90 tab 07/15/21 09/11/21 Rx release dulaglutide 1.5 mg/0.5 mL 1.5 mg (0.5 mL) SUBCUT QWEEK #12 07/24/21 09/11/21 Rx subcutaneous pen injector syrg (Trulicity) glipizide 10 mg tablet, extended 10 mg PO DAILY #90 tab 08/12/21 09/11/21 Rx release 24 hr methadone 10 mg tablet 15 mg PO TID #135 tab MDD 45mg 08/12/21 09/11/21 Rx acetaminophen 500 mg tablet 1,000 mg PO TID #90 tab 09/11/21 Rx hydrocodone 5 mg-acetaminophen 325 1 tab PO Q6H PRN #8 tab 09/11/21 Rx mg tablet ibuprofen 600 mg tablet 600 mg PO TID PRN #90 tab 09/11/21 Rx
[2021-09-11] MEDS: ceFAZolin 3,000 MG in Normal Saline 100 ML 200 MG IVPB (10:28)
[2021-09-11] MEDS: Sodium Bicarbonate 50 MEQ/50 ML VIAL (10:35)
[2021-09-11 10:59] VITALS: BP 116/71; PULSE 70; RESP 16; TEMP 36.2; O2SAT 93
--- NOTE | 2021-09-11 11:30 | W.ANESPOSTOP ---
Postoperative Evaluation Date, Time and Location Date Performed: 09/11/21 Time Performed: 11:30 Patient Location: Day Surgery Unit Vital Signs Most Recent Imported Vital Signs: Most Recent Vital Signs Temp Pulse Resp BP Pulse Ox 36.2 C L 70 16 116/71 93 09/11/21 10:59 09/11/21 10:59 09/11/21 10:59 09/11/21 10:59 09/11/21 10:59 Pain Score Most Recent Pain Score: Most Recent Pain Score Pain Level 0 09/11/21 10:59 Assessment Mental Status: Awake (Alert & Oriented to Patient Baseline) Airway and Respiratory Function: Patent airway with normal (patient baseline) respiratory exam Cardiovascular Function: Hemodynamically Stable Hydration Status: Adequately Hydrated Nausea & Vomiting: No Nausea or Vomiting Pain: Pt. Denies Any Pain Peripheral Nerve Block: Patient did not receive a nerve block
[2021-09-11 11:32] VITALS: BP 106/71; PULSE 62; RESP 16; TEMP 36.2; O2SAT 95
--- NOTE | 2021-09-11 15:10 | ROE_ITS ---
Date of service: 09/11/21 Time of Service: 11:30 Operative Note Operative Note DATE OF PROCEDURE: 09/11/21 PRE-OP DIAGNOSIS: Right Carpal Tunnel Syndrome, Right Trigger Thumb POST-OP DIAGNOSIS: same PROCEDURE: Right Endoscopic Carpal Tunnel Release, Right Trigger Thumb Release SURGEON: Tanner Gamez ANESTHESIA TYPE: General:No Airway Refer to Anesthesia Record ESTIMATED BLOOD LOSS: 0 PATHOLOGY: none sent TOURNIQUET TIME: 9 COMPLICATIONS: None Patient was transported to: same day Patient's condition: stable Indications: I have seen Peng in clinic for symptoms of carpal tunnel syndrome. The numbness, tingling, and pain limited function. Clinical exam findings with nerve conduction tests confirmed the diagnosis of carpal tunnel syndrome. Nonoperative measures such as bracing, time, activity modifications had been tried but disability and pain persisted. He also has been having increasing pain about the right thumb. This was less evident at the clinic appointment but much more evident today where he had restricted motion and pain over the A1 ary, confirming a diagnosis of trigger thumb. Therefore, I discussed carpal tunnel release with the patient. At the same time we can proceed with trigger thumb release. There was some initial plans to proceed with a cubital tunnel release as well, however, he is not having any numbness and tingling into the ulnar distribution currently at this time. I reviewed the risks of the procedure to include, but not limited to, bleeding, infection, pain, stiffness, incomplete release, damage to nerves or vessels, persistent numbness, recurrence. Despite these risks, the patient elected to proceed. Findings: There was mildly tightened carpal tunnel. This was dilated and released successfully with the endoscopic with increased space within the tunnel. The antebrachial fascia was released proximally freeing the median nerve at the wrist. The A1 ary of the thumb was quite tight and this was released with a fluid hutchison after release of the A1 ary. Procedure Description: Peng was greeted in the preoperative holding area where the correct side was identified and marked. The consent was reviewed with the patient and signed. The history and physical was updated. All questions were answered. He was taken back to the operating room. The patient was placed into the supine position on the operating room table with the right arm on an arm board. A nonsterile tourniquet was placed high onto the arm. All bony prominences were well padded. Prophylactic antibiotics in the form of Cefazolin were administered. The right arm was then prepped with Chloraprep and draped in a standard fashion with stockinette and extremity drape. A timeout to confirm correct identity, side and site, procedure, allergies, anesthesia, and medical concerns was performed. The surgical site was marked in the volar wrist creases in line with the radial border of the fourth ray. This area was anesthetized with approximately 6cc of 1% Lidocaine. The limb was then exsanguinated with an Esmarch. The skin was incised with a 15 blade, approximately 1cm. The skin only was cut and the deeper tissue was dissected bluntly with a tenotomy scissor, avoiding passing nerve and venous structures. The fascia was penetrated and opened bluntly. A two-prong skin hook was placed under this proximal fascial edge. A series of hamate finders were used to identify and dilate the carpal tunnel. Synovial elevator was used to free synovial attachments to the underside of the transverse carpal ligament. My thumb was kept in the palm to leila the distal extent of the carpal tunnel and correctly position the hand. The [employer] endoscope was inserted without difficulty and without resistance. Excellent visualization showed horizontally running fibers of the transverse carpal ligament (TCL). The distal extent of the TCL was visualized and the end of the scope palpated with the thumb. The blade was elevated and withdrawn from distal to proximal. The TCL was split into two flaps. The endoscope was reinserted to confirm complete release and any remnant ligament was incised. The scope was withdrawn and the proximal aspect of the carpal tunnel was grossly inspected and appeared release with the median nerve visible. The antebrachial fascia at the level of the wrist was then freed from the overlying skin and then the underlying median nerve with blunt dissection. This was transected longitudinally for about 3cm proximal to the wrist incision. The wound was then irrigated with easy flow of irrigant distally and proximally. Th e incision was closed with a single 4-0 Nylon suture. Attention was then turned to the trigger thumb release. A single Glory Tanya incision was drawn over the A1 ary of the thumb. This area was injected with 2% lidocaine with epinephrine. I then made an incision to the skin only. Blunt dissection was carried down to identify the flexor tendon sheath. Neurovascular tissues and other soft tissues were retracted out of the way to identify the ary. The ary was then incised with a scissor. It was very thick and quite dense. Took some effort to release this tissue. Once it was released there was immediate hutchison of fluid. The tendon sheath was inspected for any other bands of constriction. It seemed to be free. A hemostat was placed underneath the flexor tendon and brought out of the wound for further inspection. No significant flexor tendoninjury was identified. No significant tenosynovitis. This was then thoroughly irrigated. The wound was closed with 4-0 nylon. Both wounds were dressed with Xeroform, Gauze, Kerlix and Teddy. The tourniquet was deflated with the initial dressing and held with some pressure. Blood flow returned easily to all digits with capillary refill less than 2 seconds. The patient tolerated the procedure well and was returned to the Same Day Surgery area in a stable condition suffering no known complication.
== END 2021-09-11 12:06 | disposition home or self-care (01) ==
PROVIDERS: PCP Nurse Practitioner; Visit Provider Student in an Organized Health Care Education/Training Program
PROC: 01N54ZZ Release Median Nerve, Percutaneous Endoscopic Approach (ICD-10-PCS; CPT 29848; principal; 2021-09-11 12:15)
DX: M65.311 Trigger thumb, right thumb (principal); G56.01 Carpal tunnel syndrome, right upper limb; E11.40 Type 2 diabetes mellitus with diabetic neuropathy, unspecified; K22.70 Barrett's esophagus without dysplasia; I10 Essential (primary) hypertension; Z79.84 Long term (current) use of oral hypoglycemic drugs; Z79.899 Other long term (current) drug therapy
CPT/HCPCS: 29848; 26055; J0690; J1885; J2250; J2405

== ENCOUNTER 2021-10-24 02:34 | Outpatient (CLI) | payer MEDICAID, SELFPAY | END 2021-10-24 02:35 | disposition home or self-care (01) | LOC: LBO 02:35 | PROVIDERS: PCP Nurse Practitioner; Visit Provider Nurse Practitioner Adult Health ==

== ENCOUNTER 2021-10-28 03:33 | Outpatient (CLI) | payer MEDICAID, SELFPAY ==
[2021-10-28 14:53] LABS: Hemoglobin A1C 5.7 % (<5.7)
[2021-10-28 15:01] LABS: COMMENT (LAB VIEW ONLY) 289.56 mg/dL
[2021-10-28 15:02] LABS: Iron 104 ug/dL (65-175); Total Iron Binding Capacity 278 ug/dL (250-450); Transferrin Sat 37 % (20-55)
[2021-10-28 15:26] LABS: BUN 22 mg/dL (7-18); Calcium 8.7 mg/dL (8.5-10.1); Chloride 107 mmol/L (98-107); Ferritin 384 ng/mL (26-388); Folate > 20.0 ng/mL (8.6-20.0); Glucose 157 mg/dL (74-106); Potassium 4.4 mmol/L (3.5-5.1); Sodium 143 mmol/L (136-145); Vitamin B12 743 pg/mL (193-986)
[2021-10-28 15:55] LABS: Calculated LDL 111 mg/dL (<100); Cholesterol 173 mg/dL (<200); HDL Cholesterol 44 mg/dL (40-60); Triglyceride 93 mg/dL (<150)
== END 2021-10-28 03:34 | disposition home or self-care (01) ==
LOC: LBO 03:33
PROVIDERS: Internal Medicine; PCP Nurse Practitioner; Visit Provider Nurse Practitioner Adult Health
DX: R10.30 Lower abdominal pain, unspecified (principal); D64.9 Anemia, unspecified; E11.65 Type 2 diabetes mellitus with hyperglycemia
CPT/HCPCS: 36415; 80048; 80061; 82043; 82570; 82607; 82728; 82746; 83036; 83540; 83550

== ENCOUNTER 2022-04-01 13:10 | Day surgery (SDC) | payer MEDICAID, SELFPAY ==
[2022-04-01] VITALS (7 sets, daily range): BP systolic 127–152; BP diastolic 73–92; PULSE 57–64; RESP 14–22; TEMP 36.3–36.5; O2SAT 94–97; BMI 36.1
--- NOTE | 2022-04-01 12:36 | PDOC.DSDIS_ITS ---
Discharge Plan Disposition Patient Disposition: HOME Condition: Good Discharge Details Reason For Visit: Left carpal and cunital tunnel syndromes Attending Provider: Tanner Gamez Primary Care Provider: Mervat Garner Home Meds and New Rx's Prescriptions: New acetaminophen 500 mg tablet 500 mg PO Q6H PRN (Reason: pain) Qty: 60 2RF ibuprofen 600 mg tablet 600 mg PO TID PRN (Reason: pain) Qty: 60 0RF hydrocodone-acetaminophen 5-325 mg tablet 1 tab PO Q6H PRN (Reason: severe pain) Qty: 6 0RF Rx Instructions: Take one tablet up to every 6 hours as needed for severe postoperative pain Continued (DME) blood-glucose meter [FreeStyle Lite Meter] Kit See Rx Instructions .ROUTE .MEDSUPPLY Qty: 1 Rx Instructions: to test blood sugars tid, dx E11.9 to maintain HGB AIC below 7.0 Trulicity 1.5 mg/0.5 mL pen injector 1.5 mg subcut QWEEK Qty: 12 3RF methadone 10 mg tablet 15 mg PO TID MDD 45mg Qty: 135 0RF naloxone [Narcan] 4 mg/actuation spray,non-aerosol 4 mg intranasal Q2M PRN (Reason: opioid overdose) Qty: 2 5RF Rx Instructions: spray 1 dose into ONE nostril; alternate nostrils w each dose until help arrives vitamin B complex 1 EACH capsule 1 ea PO DAILY (DME) blood-glucose meter Misc See Rx Instructions .ROUTE .MEDSUPPLY Qty: 1 0RF Rx Instructions: Test TID, keep A1c under 8 (DME) lancets Misc See Rx Instructions .ROUTE .MEDSUPPLY Qty: 100 12RF Rx Instructions: Test TID, keep A1c under 8 pantoprazole 40 mg tablet,delayed release (DR/EC) 40 mg PO DAILY Qty: 90 3RF glipizide 10 mg tablet extended release 24hr 10 mg PO DAILY Qty: 90 3RF calcium polycarbophil [FiberCon] 625 mg tablet See Rx Instructions PO DAILY Rx Instructions: 1-2 PO daily; per 10/16/21 [facility] (DME) OneTouch Verio test strips Strip See Rx Instructions .ROUTE .COMPLEX Qty: 100 12RF Dose Instruction: USE TO TEST THREE TIMES A DAY TO KEEP A1C UNDER 8 Rx Instructions: USE TO TEST THREE TIMES A DAY TO KEEP A1C UNDER 8 ascorbic acid (vitamin C) 1,000 MG tablet 2,000 mg PO DAILY lysine [L-Lysine] 500 mg tablet 1,000 mg PO DAILY Discontinued acetaminophen 500 mg tablet 1,000 mg PO TID Qty: 90 0RF ibuprofen 600 mg tablet 600 mg PO TID PRN (Reason: pain) Qty: 90 0RF Discharge Instructions Additional Instructions: Cubital Tunnel Decompression Discharge Instructions Activity: You should stay in the sling for the first 2 weeks. You may come out of the sling for gentle motion and hygiene but should largely remain in the sling to allow the incision site to heal. Gentle motion of the elbow, hand, wrist, and fingers is okay and encouraged after the first few days, but no repetitive activites nor heavy lifting. You may apply ice. Medications: - You should take Tylenol and Ibuprofen around the clock. - You have been prescribed Hydrocodone for breakthrough pain. Dressings: - The initial surgical dressing should stay in place for 3 days. It may then be removed and kept clean and dry. You should cover with a light gauze dressing. - You may shower after 3 days and get the wound wet. Follow-up: 10 days Stand Alone Forms: Vera Guido Tunnel Release Referrals: Tanner Gamez MD [ [facility] STAFF PHYSICIAN] - Equipment/Supplies: Sling Activity:: Activity as Tolerated Remove Dressings/Wound Care:: 72 hours Shower/Bathe:: 72 hours Diet:: As Tolerated Discharge Orders Discharge Orders: Discharge Order (Routine); Ordered 04/01/22 Ordered By: Aby Goldberg
--- NOTE | 2022-04-01 12:54 | HPE_ITS ---
Assessment and Plan Assessment and plan (1) Left carpal tunnel syndrome: Status: Acute (2) Ulnar neuropathy: Status: Acute Assessment and plan: Plan: He was screened by the nursing staff to have no symptoms or red flags for possible Covid-19 infection. Denies any recent Covid-19 infection. Educated patient on surgery covering surgical technique, recovery process, benefits and risks including but not limited to risk of infection, blood clot, damage to soft tissue/blood vessels/nerves in detail. After discussion patient gives verbal understanding of risks and elects to proceed with scheduling surgery. Patient had opportunity to have questions answered to their satisfaction. They will contact office if issues arise. Patient will continue with left ECTR and cubital tunnel release with Dr. aGmez History of Present Illness Narrative: Mr. Fung is a 61-year-old male who presents for left carpal and cubital tunnel releases. He has been experiencing numbness and tingling in his left hand for over a year. Symptoms are aggravated most evenings especially with holding his iPad for long periods of time. He underwent nerve conduction studies in July 2021 which revealed left cubital and carpal tunnel syndromes. Due to his continued symptoms he wishes to proceed with surgical intervention. Review of Systems Cardiovascular Cardiovascular: Denies chest pain, Denies dyspnea and Denies dyspnea on exertion Respiratory Respiratory: Denies dyspnea and Denies dyspnea on exertion [facility] All Active Problems (Updated 04/01/22 @ 13:00 by Aby Goldberg) Right lateral epicondylitis (Acute) Trigger thumb, right thumb (Acute) S/P Release: 09/11/2021 Left carpal tunnel syndrome (Acute) Right carpal tunnel syndrome (Acute) S/P ECTR: 09/11/2021 Constipation (Acute) 08/07/21 [facility] note Lower abdominal pain (Acute) 08/07/21 [facility] note Cubital tunnel syndrome, bilateral (Acute) SARS-CoV-2 positive (Acute ~05/2021) Ulnar neuropathy (Acute) Left Right hand pain (Acute) Ulcer of toe of left foot (Acute) Left hand pain (Acute) Joint pain (Acute) Salcido's esophagus without dysplasia (Acute ~11/2020) Low back pain (Acute) Numbness of anterior thigh (Acute) GERD (gastroesophageal reflux disease) (Chronic) Abnormal blood chemistry (Acute) Chronic pain (Chronic) Type 2 diabetes mellitus with diabetic neuropathy, unspecified (Acute) Fatigue (Acute) Chest pain at rest (Acute) Nail abnormality (Acute) Toe ulcer (Acute) Joint stiffness (Acute) History of elevated antinuclear antibody (VY) (Acute) Statin declined (Acute) Noncompliance with CPAP treatment (Acute) Skin lesion (Acute) Musculoskeletal pain (Acute) Penile discharge (Acute) Pelvic pain in male (Acute) Yeast dermatitis of penis (Acute) Uncontrolled diabetes mellitus (Acute) Muscle spasm (Acute) Toe infection (Acute) Chronic low back pain (Acute) Helicobacter pylori infection (Acute 05/09/15) Gallstones (Acute) Acromioclavicular joint arthritis (Chronic) With respect to his right hand I think he could undergo simple trigger thumb and trigger finger release with excellent results at his convenience with respect to his right shoulder his CT scan showed sternal clavicular degenerative changes which were mild but significant degenerative changes over the acromioclavicular joint I am uncertain as to whether or not he is feeling pain in his medial clavicle as it as a secondary phenomenon to limited range of motion in terms of axial rotation of the AC joint. It is possible that he still has primary sternoclavicular arthritis but the x-ray f indings on CT scan are modest. I would recommend first trying to eliminate both quads allergies. I would start with iontophoresis in physical therapy over the sternoclavicular joint if this was ineffective then I would recommend a trial of Depo-Medrol injection of the sternoclavicular joint if neither of these were effective then I would recommend possibly resection of the distal clavicle. He is reluctant to have any type of corticosteroid but I explained to him that this is a different type of corticosteroid utilization compared to when he had systemic corticosteroids for a medical condition a few years ago at that time he had elevation of his A1c and he does not want that. I feel simple injection of Depo-Medrol would have minimal effect on his overall systemic glucose levels and iontophoresis would have almost no effect I will see him back in 3-4 weeks for follow-up Type 2 diabetes mellitus with diabetic neuropathy (Acute 10/26/15) Right knee pain (Acute 06/06/15) Painful diabetic neuropathy (Acute 04/15/17) CHERYLE (obstructive sleep apnea) (Acute 03/31/17) Numbness and tingling in left arm (Acute 08/16/15) Hypertriglyceridemia, essential (Acute 05/23/15) Essential (primary) hypertension (Acute 05/02/14) Esophagitis (Acute 01/18/18) [facility] Degenerative joint disease of cervical spine (Acute 09/05/15) C2-C3, C3-C4 with possible foraminal narrowing at C5-C6 and C6-C7 Chronic diarrhea (Acute 05/09/15) Barretts esophagus (Acute 08/08/15) [facility] consult 11/2015 --> pt declines injections & surgery Cervical MRI 10/2015 Acid reflux (Acute 05/09/15) GERD by EGD 01/18/[address] (Acute 08/18/16) Chest discomfort (Acute 05/02/14) Medical History (Updated 04/01/22 @ 13:00 by Aby Goldberg) Essential hypertension GERD (gastroesophageal reflux disease) History of Helicobacter pylori infection Surgical History Arthroplasty of knee (08/14/15) right knee arthroscopy w/partial posteriolateral menisectomy: limited medial femoral chondroplasty Dr Rascon Colonoscopy - IV Sedation (04/20/15) DR.TERRY BARILLAS H/O colonoscopy (~07/24/21) 07/24/21 [facility] H/O endoscopy (~07/24/21) 07/24/21 [facility] Family History Mother Substance abuse Diabetes Essential hypertension Heart disease Hyperlipidemia Mental disorder Other Chronic mental illness Social History (Updated 05/01/20 @ 10:53 by Sandrine Curry RN) Smoking/Tobacco Use Status: Former Tobacco Use Quit Date: 06/15/76 Smoking risk assessment performed?: Yes Alcohol Intake: current Alcohol Intake frequency: a few times a week Alcohol type: beer and hard liquor Details: couple shots, couple beers a few times a week, more if its a bad day Drug use: Daily Substance use type: marijuana Household members: spouse and children Housing: house Number of Children: 2 current occupation: disabled What is your relationship status?: Panel score (0-1 are the most socially isolated patients): 1 What type of physical activity do you participate in: walking and additional Details: PT exercises Duration: 15-30 minutes/day Frequency: daily Do you feel safe at home: Yes Do you feel safe in your relationship?: Yes Meds Allergies and Home Medications Allergies Allergy/AdvReac Type Severity Reaction Status Date / Time pregabalin [From Lyrica] AdvReac Mild 10/27/2016 Verified 12/31/21 10:13 lower extremity edema metformin AdvReac elevated Verified 12/31/21 10:13 creatinine Home Medications Medication Instructions Recorded Confirmed Type ascorbic acid (vitamin C) 1,000 mg 2,000 mg PO DAILY 04/12/14 03/31/22 History tablet vitamin B complex 1 ea PO DAILY 12/30/16 03/31/22 History lysine 500 mg tablet (L-Lysine) 1,000 mg PO DAILY 08/31/18 03/31/22 History blood-glucose meter (FreeStyle #1 ea 10/02/20 10/30/21 History Lite Meter kit) blood-glucose meter #1 ea 10/03/20 10/30/21 Rx lancets #100 ea 10/03/20 10/30/21 Rx pantoprazole 40 mg tablet,delayed 40 mg PO DAILY #90 tabs 07/15/21 03/31/22 Rx release dulaglutide 1.5 mg/0.5 mL 1.5 mg (0.5 mL) subcut QWEEK #12 07/24/21 03/31/22 Rx subcutaneous pen injector SYRGS (Trulicity) glipizide 10 mg tablet, extended 10 mg PO DAILY #90 tabs 08/12/21 03/31/22 Rx release 24 hr acetaminophen 500 mg tablet 1,000 mg PO TID #90 tabs 09/11/21 03/31/22 Rx ibuprofen 600 mg tablet 600 mg PO TID PRN pain #90 tabs 09/11/21 03/31/22 Rx calcium polycarbophil 625 mg See Rx Instructions PO DAILY 10/16/21 03/31/22 History tablet (FiberCon) methadone 10 mg tablet 15 mg PO TID Chronic pain #135 tabs 12/31/21 03/31/22 Rx naloxone 4 mg/actuation nasal 4 mg intranasal Q2M PRN opioid 12/31/21 03/31/22 Rx spray (Narcan) overdose #2 ea blood sugar diagnostic (OneTouch #100 strips 03/12/22 03/31/22 Rx Verio test strips) Exam Const General: cooperative, comfortable and no acute distress Resp Effort & Inspection: normal respiratory effort and able to speak in complete sentences Auscultation: clear to auscultation bilaterally, no rales, no rhonchi and no wheezes Cardio Heart Sounds: S1 normal, S2 normal and no murmurs
--- NOTE | 2022-04-01 13:05 | ANES.PREOP_ITS ---
General Info Date of Service Date Performed: 04/01/22 Height: 6 ft Weight: 120.656 kg Body Mass Index (BMI): 36.1 Surgical Procedure: Operation Date: 04/01/22 15:25 Proposed Procedure Side Surgeon p Wrist ECTR Left Tanner Gamez MD s Cubital Tunnel Release Left Tanner Gamez MD Meds Allergies and Home Medications Allergies Allergy/AdvReac Type Severity Reaction Status Date / Time pregabalin [From Lyrica] AdvReac Mild 10/27/2016 Verified 04/01/22 13:52 lower extremity edema metformin AdvReac elevated Verified 04/01/22 13:52 creatinine Home Medication Medication Instructions Recorded ascorbic acid (vitamin C) 1,000 mg 2,000 mg PO DAILY 04/12/14 tablet vitamin B complex 1 ea PO DAILY 12/30/16 lysine 500 mg tablet (L-Lysine) 1,000 mg PO DAILY 08/31/18 blood-glucose meter (FreeStyle #1 ea 10/02/20 Lite Meter kit) blood-glucose meter #1 ea 10/03/20 lancets #100 ea 10/03/20 pantoprazole 40 mg tablet,delayed 40 mg PO DAILY #90 tabs 07/15/21 release dulaglutide 1.5 mg/0.5 mL 1.5 mg (0.5 mL) subcut QWEEK #12 07/24/21 subcutaneous pen injector SYRGS (Trulicity) glipizide 10 mg tablet, extended 10 mg PO DAILY #90 tabs 08/12/21 release 24 hr calcium polycarbophil 625 mg See Rx Instructions PO DAILY 10/16/21 tablet (FiberCon) methadone 10 mg tablet 15 mg PO TID Chronic pain #135 tabs 12/31/21 naloxone 4 mg/actuation nasal 4 mg intranasal Q2M PRN opioid 12/31/21 spray (Narcan) overdose #2 ea blood sugar diagnostic (OneTouch #100 strips 03/12/22 Verio test strips) acetaminophen 500 mg tablet 500 mg PO Q6H PRN pain #60 tabs 04/01/22 hydrocodone 5 mg-acetaminophen 325 1 tab PO Q6H PRN severe pain #6 04/01/22 mg tablet tabs ibuprofen 600 mg tablet 600 mg PO TID PRN pain #60 tabs 04/01/22 Current Visit Medications: Current Medications Generic Name Dose Route Start Last Admin Trade Name Freq PRN Reason Stop Dose Admin Acetaminophen 650 mg 04/01/22 12:35 Acetaminophen 325 Mg Tab PO Q4H PRN PRN Hydrocodone Bitart/Acetaminophen 0 tab 04/01/22 12:35 Hydrocodone 5/Acetaminophen 325 Tab PO Q3H PRN PRN Pain Ringer's Solution 1,000 mls @ 80 mls/hr 04/01/22 06:00 IV 04/30/22 23:59 INFUSION ZOHREH Cefazolin Sodium/Dextrose 2 gm in 50 mls @ 100 mls/hr 04/01/22 06:00 Ancef Duplex IVPB 04/01/22 16:00 PREOP ZOHREH IV Miscellaneous Supplies 1 each 04/01/22 06:00 Iv Access IV 04/30/22 23:59 DIRECTED ZOHREH Sodium Chloride 0 ml 04/01/22 06:00 Normal Saline Flush 10 Ml Syr IV 04/30/22 23:59 PRN PRN Sodium Chloride 0 ml 04/01/22 06:00 Normal Saline 10 Ml Vial IJ 04/30/22 23:59 DIRECTED PRN Sterile Water 0 ml 04/01/22 06:00 Water,Injection,Sterile 10 Ml Vial IJ 04/30/22 23:59 DIRECTED PRN PFSH Active Problems Active Problems: Problem Status Onset Code Right lateral epicondylitis M77.11 Trigger thumb, right thumb M65.311 Left carpal tunnel syndrome G56.02 Right carpal tunnel syndrome G56.01 Constipation K59.00 Lower abdominal pain R10.30 Cubital tunnel syndrome, bilateral G56.23 SARS-CoV-2 positive ~05/2021 U07.1 Ulnar neuropathy G56.20 Right hand pain M79.641 Ulcer of toe of left foot L97.529 Left hand pain M79.642 Joint pain M25.50 Salcido's esophagus without dysplasia ~11/2020 K22.70 Low back pain M54.5 Numbness of anterior thigh R20.0 GERD (gastroesophageal reflux disease) K21.9 Abnormal blood chemistry R79.9 Chronic pain G89.29 Type 2 diabetes mellitus with diabetic neuropathy, unspecified E11.40 Fatigue R53.83 Chest pain at rest R07.9 Nail abnormality L60.9 Toe ulcer L97.509 Joint stiffness M25.60 History of elevated antinuclear antibody (VY) Z87.898 Statin declined Z53.20 Noncompliance with CPAP treatment Z91.14 Skin lesion L98.9 Musculoskeletal pain M79.18 Penile discharge R36.9 Pelvic pain in male R10.2 Yeast dermatitis of penis B37.49 Uncontrolled diabetes mellitus E11.65 Muscle spasm M62.838 Toe infection L08.9 Chronic low back pain M54.5, G89.29 Helicobacter pylori infection 05/09/15 A04.8 Gallstones K80.20 Acromioclavicular joint arthritis M19.019 Type 2 diabetes mellitus with diabetic neuropathy 10/26/15 E11.40 Right knee pain 06/06/15 M25.561 Painful diabetic neuropathy 04/15/17 E11.40 CHERYLE (obstructive sleep apnea) 03/31/17 G47.33 Numbness and tingling in left arm 08/16/15 R20.0, R20.2 Hypertriglyceridemia, essential 05/23/15 E78.1 Essential (primary) hypertension 05/02/14 I10 Esophagitis 01/18/18 K20.9 Degenerative joint disease of cervical spine 09/05/15 M47.812 Chronic diarrhea 05/09/15 K52.9 Barretts esophagus 08/08/15 K22.70 Acid reflux 05/09/[address] 08/18/16 R93.8 Chest discomfort 05/02/14 R07.89 Medical History Medical History Essential hypertension GERD (gastroesophageal reflux disease) History of Helicobacter pylori infection Surgical History Surgical History Arthroplasty of knee (08/14/15) right knee arthroscopy w/partial posteriolateral menisectomy: limited medial femoral chondroplasty Dr Rascon Colonoscopy - IV Sedation (04/20/15) DR.TERRY BARILLAS H/O colonoscopy (~07/24/21) 07/24/21 [facility] H/O endoscopy (~07/24/21) 07/24/21 [facility] Tobacco Smoking/Tobacco Use Status: Former Tobacco Use Alcohol Alcohol Intake: current Alcohol intake frequency: a few times a week Alcohol type: beer and hard liquor Details: couple shots, couple beers a few times a week, more if its a bad day Substance Use Substance use: Daily Substance use type: marijuana Vital Signs and Lab Results Vital Signs Most Recent Vital Signs in EMR: Temp Pulse Resp BP Pulse Ox 36.4 C L 60 16 129/91 H 97 04/01/22 13:56 04/01/22 13:56 04/01/22 13:56 04/01/22 13:56 04/01/22 13:56 Lab Results Blood Type / Crossmatch: No Data to Display Complete Blood Count: No Data to Display Complete Metabolic Panel: No Data to Display Liver Function Panel: No Data to Display Coagulation Panel: No Data to Display Cardiac Panel: No Data to Display Arterial Blood Gas: No Data to Display Venous Blood Gas: No Data to Display Pancreas Panel: No Data to Display Thyroid Panel: No Data to Display Infectious Disease: No Data to Display Blood Cultures: No Data to Display Toxicology Panel: No Data to Display Imaging and Studies Imaging and Studies Study information below may be from another EMR and interpreted by another provider. Please see original notes in EMR for more complete details. Stress Test Summary: 09/02: 7 METS, no evidence of ischmia on ECG. MPI LVEF 51%, no evidence of ischemia. Echocardiogram Summary: 08/2020: LVEF 55-58%, no sig valve issues. Anesthesia Assessment and Plan Anesthesia History Personal History: No History of Anesthesia Complications Family History: No Family History of Anesthesia Complications and Other Exercise Tolerance Exercise Tolerance: Metabolic Equivalents>4 Pertinent Negatives Pertinent Negatives: No Symptoms of GERD Cardiac & Pulmonary Exam Cardiac Exam: Normal S1/S2 Heart Sounds Pulmonary Exam: Clear Bilateral Breath Sounds Implantable Cardiac Device Does patient have a Pacemaker or an ICD?: No Airway Exam Known Difficult Airway: No Mallampati Class: 1 Mouth Opening: Normal (> 3cm) Thyromental Distance: Greater than 3 cm Neck Range of Motion: Full ROM Neck Circumference: Normal Teeth Condition: Normal Dentition ASA Classification ASA Score: ASA 3 Emergency Case?: No NPO Status NPO Status: NPO Clears >2 hours, Solids >8 hours Anesthesia Plan Resuscitation Status: Full Code Anesthesia Technique: General Anesthesia Airway Planned: LMA Monitors Used: Standard Monitors Preoperative Comments:: 61 yo male for ECTR - left. Sig PMHx: barretts, GERD (pantoprazole), chronic pain (methadone), DM2 (dulaglutide, glipizide), CHERYLE, HTN, former smoker, daily cannabis/etoh. Previous Anes: - Knee arthroscopy with LMA 5 - ECTR with ketamine/midaz/prop
[2022-04-01] MEDS: Lactated Ringers 1,000 ML 80 ML IV (14:15)
[2022-04-01] MEDS: ceFAZolin 2 GM/50 ML BAG IVPB (14:45)
[2022-04-01] MEDS: Bupivacaine 0.5% Pres-Free W/EPI 10 ML VIAL (15:18)
--- NOTE | 2022-04-01 15:55 | W.PM.OP ---
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 Nonoperative treatment options had been trialed. Nerve conduction studies identified the carpal and cubital tunnel as the point of compression. Given failure of nonoperative treatments and persistent symptoms, I offered operative intervention. I reviewed the technical details of a carpal tunnel release and cubital tunnel decompression with possible anterior subcutaneous transposition. I reviewed the risk of the procedure to include bleeding, infection, pain, stiffness, nerve instability, damage to superficial nerves, persistent symptoms, and incomplete release. Despite these risks, the patient elected to proceed. Findings: The carpal tunnel was release with a standard endoscopic technique without difficulty although visualization was difficult at first due to significnat synovitis and fat. There was a tightened cubital tunnel. The ulnar nerve was release from the first motor branch distally through the [place] proximally. Procedure Description: Peng was greeted in the preoperative holding area where the correct side was identified and marked. The consent was reviewed with the patient and signed. The history and physical was updated. All questions were answered. He was taken back to the operating room. The patient was placed into the supine position on the operating room table with the left arm on an arm board. A nonsterile tourniquet was placed high onto the arm, into the axilla. All bony prominences were well padded. Prophylactic antibiotics in the form of Cefazolin were administered. The right arm was then prepped with Chloraprep and draped in a standard fashion with stockinette and extremity drape. A timeout to confirm correct identity, side and site, procedure, allergies, anesthesia, and medical concerns was performed. The surgical site was marked in the volar wrist creases in line with the radial border of the fourth ray. This area was anesthetized with approximately 6cc of 1% Lidocaine with Epinephrine. The surgical site about the medial elbow was drawn on the skin just posterior to the medial epicondyle borders. The planned surgical field was anesthetized with 1% Lidocaine with Epinephrine. The limb was then exsanguinated with an Esmarch. Starting with the carpal tunnel, the skin was incised with a 15 blade, approximately 1cm. The skin only was cut and the deeper tissue was dissected bluntly with a tenotomy scissor, avoiding passing nerve and venous structures. The fascia was penetrated and opened bluntly. A two-prong skin hook was placed under this proximal fascial edge. A series of hamate finders were used to identify and dilate the carpal tunnel. Synovial elevator was used to free synovial attachments to the underside of the transverse carpal ligament. My thumb was kept in the palm to leila the distal extent of the carpal tunnel and correctly position the hand. The Microaire endoscope was inserted without difficulty and without resistance. There was dense synovium and fat which made visualization difficult. After multiple passes with the elevator, much improved visualization showed horizontally running fibers of the transverse carpal ligament (TCL). The distal extent of the TCL was visualized and the end of the scope palpated with the thumb. The blade was elevated and withdrawn from distal to proximal. The TCL was split into two flaps. The endoscope was reinserted to confirm complete release and any remnant ligament was incised. The scope was withdrawn and the proximal aspect of the carpal tunnel was grossly inspected and appeared release with the median nerve visible. The antebrachial fascia at the level of the wrist was then freed from the overlying skin and then the underlying median nerve with blunt dissection. This was transected longitudinally for about 3cm proximal to the wrist incision. The wound was then irrigated with easy flow of irrigant distally and proximally. The incision was closed with a single 4-0 Nylon suture. . Attention was then turned to the cubital tunnel release. The skin of the medial elbow was incised only with the elbow in some flexion and on a bump. The deep tissue and subcutaneous fat was dissected with a tenotomy scissors trying to protect any branches of the medial antebrachial cutaneous nerve. Any branches that were identified were retracted out of the way. The ulnar nerve was palpated and identified. A small window into the cubital tunnel, sheath overlying the nerve, was created and the nerve was able to be palpated with the [place]. A Metzenbaum scissor was then used to open up the sheath starting with Garcia's ligament. I then worked distal over the ulnar nerve releasing any constraints against the nerve all the way to the fascia of the FCU muscle belly. This muscle belly was bluntly all the way down to the first motor branch of the ulnar nerve and the overlying fascia was incised. Likewise starting there at the medial epicondyle, I proceeded to work proximally to release any constraints over the ulnar nerve. This was taken all the way to the arcade of [place]. The medial intermuscular septum was also palpated and any sharp edges against the ulnar nerve were resected and released. After fully releasing the nerve it was inspected visually. I was also able to palpate the nerve fully and reach one finger up into the proximal and distal aspects to make sure there were no constraints against the nerve. A freer elevator was also used to slide easily against the ulnar nerve without any points of constriction. The arm was then taken through range of motion. The ulnar nerve did not sublux/dislocate out of its groove behind the lateral epicondyle. Therefore, no transposition was performed. The tourniquet was then deflated. Any areas of bleeding were cauterized with bipolar electrocautery. The wound was thoroughly irrigated. The deep tissue was closed with a 3-0 Vicryl. The skin was closed with a 4-0 nylon. The wounds were dressed with Xeroform, 4 x 4's, ABD, Kerlix and an Teddy wrap. Peng was placed into a sling. He was transferred back to the PACU in a stable condition.
--- NOTE | 2022-04-01 16:20 | W.ANESPOSTOP ---
Postoperative Evaluation Date, Time and Location Date Performed: 04/01/22 Time Performed: 16:20 Patient Location: Day Surgery Unit Vital Signs Most Recent Imported Vital Signs: Most Recent Vital Signs Temp Pulse Resp BP Pulse Ox 36.3 C L 63 14 141/84 H 95 04/01/22 16:07 04/01/22 16:07 04/01/22 16:07 04/01/22 16:07 04/01/22 16:07 Pain Score Most Recent Pain Score: Most Recent Pain Score Pain Level 0 04/01/22 16:07 Assessment Mental Status: Awake (Alert & Oriented to Patient Baseline) Airway and Respiratory Function: Patent airway with normal (patient baseline) respiratory exam Cardiovascular Function: Hemodynamically Stable Hydration Status: Adequately Hydrated Nausea & Vomiting: No Nausea or Vomiting Pain: Pain is tolerable per patient Peripheral Nerve Block: Patient did not receive a nerve block
== END 2022-04-01 17:00 | disposition home or self-care (01) ==
PROVIDERS: PCP Nurse Practitioner; Visit Provider Student in an Organized Health Care Education/Training Program
PROC: 01N54ZZ Release Median Nerve, Percutaneous Endoscopic Approach (ICD-10-PCS; CPT 29848; principal; 2022-04-01 15:15)
PROC: (CPT 64718; 2022-04-01 15:15)
DX: G56.02 Carpal tunnel syndrome, left upper limb (principal); G56.22 Lesion of ulnar nerve, left upper limb; I10 Essential (primary) hypertension; E11.9 Type 2 diabetes mellitus without complications; G47.33 Obstructive sleep apnea (adult) (pediatric)
CPT/HCPCS: 64718; 29848; J0690; J1100; J2405; J2704

== ENCOUNTER 2022-05-20 15:56 | Outpatient (REF) | payer MEDICAID, SELFPAY ==
[2022-05-21 21:40] LABS: Influenza A RNA Result Negative (Negative); Influenza B RNA Result Negative (Negative); RSV RNA Result Negative (Negative)
[2022-05-21 21:44] LABS: COVID-19 RT-PCR UVMMC Result Negative (Negative)
== END 2022-05-20 15:57 | disposition home or self-care (01) ==
LOC: LBN 15:56
PROVIDERS: PCP Nurse Practitioner; Visit Provider Nurse Practitioner
DX: R53.83 Other fatigue (principal); Z20.822 Contact with and (suspected) exposure to COVID-19
CPT/HCPCS: 87631; U0003

== ENCOUNTER 2022-06-03 02:16 | Outpatient (CLI) | payer MEDICAID, SELFPAY ==
[2022-06-03 10:51] LABS: HCT 44.4 % (40.0-50.0); HGB 15.3 g/dL (13.5-17.5); MCHC 34.5 % (32.0-36.0); MCV 90 fL (80-95); MPV 9.6 fL (8.0-11.0); Platelet Count 235 10^3/uL (130-400); RBC 4.93 10^6/uL (4.36-5.78); RDW 12.8 % (11.8-14.1); RDW-SD 42.1 fL; WBC 6.84 10^3/uL (4.4-10.8)
[2022-06-03 11:10] LABS: ALT 38 U/L (16-63); AST 23 U/L (15-37); Albumin 4.1 g/dL (3.4-5.0); Alkaline Phosphatase 99 U/L (46-116); Anion Gap 3.5 mmol/L (3-11); BUN 21 mg/dL (7-18); Bilirubin, Total 0.7 mg/dL (0.2-1.0); CO2 32.5 mmol/L (21.0-32.0); CREATININE 1.1 mg/dL (0.70-1.30); Chloride 104 mmol/L (98-107); Estimated GFR 76.85 (mL/min/1.73m2); Glucose 163 mg/dL (74-106); Potassium 3.8 mmol/L (3.5-5.1); Sodium 140 mmol/L (136-145); Total Protein 7.6 g/dL (6.4-8.2)
== END 2022-06-03 02:17 | disposition home or self-care (01) ==
LOC: LBO 02:16
PROVIDERS: PCP Nurse Practitioner; Visit Provider Nurse Practitioner
DX: E11.40 Type 2 diabetes mellitus with diabetic neuropathy, unspecified (principal)
CPT/HCPCS: 36415; 80053; 85027

== ENCOUNTER 2022-06-19 01:09 | Outpatient (CLI) | payer MEDICAID, SELFPAY ==
--- NOTE | 2022-06-19 07:00 | DI.RAD_ITS ---
Exam(s) XR CERVICAL SPINE COMP 4-5V EXAM: XR CERVICAL SPINE COMP 4-5V CLINICAL HISTORY: neck pain and stiffness,m54.2. TECHNIQUE: 2D digital imaging was performed. COMPARISON: CR XR CERVICAL SPINE COMP 4-5V from 06/23/2019 FINDINGS: Five views: No evidence of acute fracture or listhesis nor offset of the spinal laminar line. There is further disc space narrowing at C5-6 level when compared to 3 years ago. Also anterior osse ous lipping and calcification in the anterior longitudinal ligament at C5-6 again also again noted is calcification in the supraspinous ligament which appears unchanged. On the oblique views there are bilateral Luschka joint osteophytes evident at C5-6 level moderate siz e. On the frontal flu there is small right-sided cervical C7 rib again noted. IMPRESSION: Degenerative disc disease C5-6. Small right cervical rib C7 level. DATA REPOSITORY: RADIATION DOSE DELIVERED:
== END 2022-06-19 01:29 ==
LOC: DI 01:09
PROVIDERS: PCP Nurse Practitioner; Visit Provider Nurse Practitioner
DX: M50.322 Other cervical disc degeneration at C5-C6 level (principal)
CPT/HCPCS: 72050

== ENCOUNTER 2022-07-14 13:02 | Outpatient (CLI) | payer MEDICAID, SELFPAY ==
--- NOTE | 2022-07-14 13:00 | RT.EKG_ITS ---
APPROVED REPORT Exam: Resting ECG Reason for Exam: chest pain Patient Location: O HR:88 bpm ECG Measurements Heart Rate 88 AXIS DE 201 P -21 QRSd 102 QRS 63 QT 390 T 3 QTc 472 Conclusion Sinus rhythm...normal P axis, V-rate 50- 99 Ventricular bigeminy...bigeminy string>4 w/ V complexes
== END 2022-07-14 13:03 | disposition home or self-care (01) ==
LOC: DI.KIM 13:03
PROVIDERS: PCP Nurse Practitioner; Visit Provider Nurse Practitioner
DX: R07.9 Chest pain, unspecified (principal)
CPT/HCPCS: 93010

== ENCOUNTER 2022-07-21 10:19 | Outpatient (CLI) | payer MEDICAID, SELFPAY ==
--- NOTE | 2022-07-21 10:15 | RT.EKG_ITS ---
APPROVED REPORT Exam: Resting ECG Reason for Exam: chest pressure, ? GI Patient Location: O HR:71 bpm ECG Measurements Heart Rate 71 AXIS CO 207 P -21 QRSd 146 QRS 46 QT 413 T -1 QTc 449 Conclusion Sinus rhythm...normal P axis, V-rate 50- 99 Multiple ventricular premature complexes...V complexes w/ short R-R intervls Borderline prolonged CO interval...CO >202, V-rate 50- 90 Poor R wave progression
== END 2022-07-21 10:20 | disposition home or self-care (01) ==
LOC: DI.KIM 10:20
PROVIDERS: PCP Nurse Practitioner; Visit Provider Nurse Practitioner
DX: R07.89 Other chest pain (principal); R94.31 Abnormal electrocardiogram [ECG] [EKG]
CPT/HCPCS: 93010

== ENCOUNTER 2022-07-21 15:53 | Outpatient (CLI) | payer MEDICAID, SELFPAY ==
--- NOTE | 2022-07-21 11:06 | DI.RAD_ITS ---
Exam(s) XR CHEST 2V PA LATERAL EXAM: XR CHEST 2V PA LATERAL CLINICAL HISTORY: chest pressure, cough R07.89 CHEST PAIN TECHNIQUE: 2D digital imaging was performed of the chest. Three images were obtained. PA and later al views were obtained. COMPARISON: CR XR shoulder RT complete 2+V from 05/31/2018 FINDINGS: MEDIASTINUM: Normal. HEART: Normal. PULMONARY VASCULATURE: Normal. LUNGS: Clear. PLEURAL SPACE: No pleural effusion or pneumothorax. BONE:Within normal limits for the patient's age. OTHER FINDINGS:Normal. IMPRESSION: No acute pulmonary findings. DATA REPOSITORY: RADIATION DOSE DELIVERED:
== END 2022-07-21 16:13 ==
LOC: DI 15:55
PROVIDERS: PCP Nurse Practitioner; Visit Provider Nurse Practitioner
DX: R07.89 Other chest pain (principal); R05.8 Other specified cough
CPT/HCPCS: 71046

== ENCOUNTER 2022-07-21 16:37 | Emergency (ER) | payer MEDICAID, SELFPAY ==
[2022-07-21] VITALS (31 sets, daily range): BP systolic 153–199; BP diastolic 48–104; PULSE 46–82; RESP 11–32; TEMP 36.5; O2SAT 100
--- NOTE | 2022-07-21 16:30 | RT.EKG_ITS ---
APPROVED REPORT Exam: Resting ECG Reason for Exam: chest pain Patient Location: E HR:65 bpm ECG Measurements Heart Rate 65 AXIS AL 206 P -16 QRSd 112 QRS 33 QT 432 T 22 QTc 464 Conclusion Sinus rhythm...normal P axis, V-rate 60- 99 Multiple ventricular premature complexes...V complexes w/ short R-R intervls Borderline prolonged AL interval...AL >202, V-rate 50- 90 Anteroseptal infarct, old...Q >40mS, V1-V2
--- NOTE | 2022-07-21 16:53 | ED.GENADUL_ITS ---
Discharge Plan Disposition Patient Disposition: Home Condition: Stable Discharge Details Clinical Impression: Nausea & vomiting, Delayed gastric emptying Primary Care Provider: Mervat Garner ED Provider: Zehra Irwin Meds and New Rx's Prescriptions: Continued pantoprazole 40 mg tablet,delayed release (DR/EC) 40 mg PO DAILY Qty: 90 3RF glipizide 10 mg tablet extended release 24hr 10 mg PO DAILY Qty: 90 3RF sucralfate [Carafate] 1 gram tablet 1 g PO QACHS Qty: 112 0RF (DME) blood-glucose meter [FreeStyle Lite Meter] Kit See Rx Instructions .ROUTE .MEDSUPPLY Qty: 1 Rx Instructions: to test blood sugars tid, dx E11.9 to maintain HGB AIC below 7.0 amoxicillin-pot clavulanate [Augmentin] 500-125 mg tablet 1 tab PO BID Qty: 14 0RF vitamin B complex 1 EACH capsule 1 ea PO DAILY (DME) blood-glucose meter Misc See Rx Instructions .ROUTE .MEDSUPPLY Qty: 1 0RF Rx Instructions: Test TID, keep A1c under 8 (DME) lancets Misc See Rx Instructions .ROUTE .MEDSUPPLY Qty: 100 12RF Rx Instructions: Test TID, keep A1c under 8 (DME) OneTouch Verio test strips Strip See Rx Instructions .ROUTE .COMPLEX Qty: 100 12RF Dose Instruction: USE TO TEST THREE TIMES A DAY TO KEEP A1C UNDER 8 Rx Instructions: USE TO TEST THREE TIMES A DAY TO KEEP A1C UNDER 8 Trulicity 1.5 mg/0.5 mL pen injector 1.5 mg subcut QWEEK Qty: 12 3RF ascorbic acid (vitamin C) 1,000 MG tablet 2,000 mg PO DAILY lysine [L-Lysine] 500 mg tablet 1,000 mg PO DAILY acetaminophen 500 mg tablet 500 mg PO Q6H PRN (Reason: pain) Qty: 60 2RF ibuprofen 600 mg tablet 600 mg PO TID PRN (Reason: pain) Qty: 60 0RF Discharge Instructions Instructions: Acute Nausea and Vomiting (ED) Additional Instructions: No evidence of bowel obstruction, you do have some thickening of the distal esophagus. Continue use of capsaicin cream up to 3 times daily as needed for symptoms. Diet, advance as tolerated. Stay away from anything fried spicy fatty or dairy. Please take your previously prescribed medications as directed. Please follow- up with [facility] as previously instructed. Take the nausea medication as needed for return of nausea vomiting. Follow up with primary care provider in 3-5 days. Return to ED sooner if any worsening or concerns. Increase oral fluids. Referrals: Mervat Garner NP [Primary Care Provider] - 5 days Medical Decision Making Cardiac work-up ordered including serial CBC, CMP EKG, troponins, PT PTT, chest x-ray, urinalysis urine drug screen. will consider CT imaging chest abdomen pelvis. Also consider doing guaiac stool due to the history of Salcido's esophagus. Zofran 4 mg ordered IV and a liter of normal saline EKG was reviewed by Dr. Ford ER attending, please see his official report old EKG available for review. Multifocal PVCs no significant change from prior. No STEMI. Differential diagnosis includes but not limited to methadone withdrawal however he is not showing any signs of opiate withdrawal, no yawning, no tremor, CAD, GI bleed, gastroenteritis, cholecystitis, Gastroparesis exacerbation CBC shows white blood cell count slightly elevated 11.2, H&H within normal limits, neutrophil 7.62 lipase 126, which is elevated CT chest abdomen pelvis ordered with contrast. On monitor he does go intermittently into bigeminy. 181: Patient has received 4 Zofran and told to have Phenergan and liter of fluid and is continuing to have emesis. Repeat EKG ordered to eval QT, will consider droperidol. 184: 2.5 mg Droperidol ordered SIVP, will closely monitor. CT chest abdomen pelvis V rad report shows mucosal thickening of the distal esophagus which is consistent with his Salcido's esophagus, see result below. Fatty infiltration of the liver and enlarged prostate. Patient did have another small episode of emesis, capsaicin cream ordered for Abdomen. On patient reevaluation he reports no further emesis nausea has improved after the capsaicin, and instructions for home care, 4 tablets of Zofran ODT given if needed. Patient feeling much improved prior to discharge. This text was generated using [employer] system, please disregard any oddities of phrase or misspellings. Medical Records Medical records reviewed: Yes I reviewed the patient's medical records. Medical records narrative: On medication review he was prescribed methadone 45 mg daily on June 17 Imaging Data Radiologic Study: Imaging: CT Scan Radiologist's impression: CT CHEST ABD PEL W: FINDINGS: Thyroid: The visualized portions of the thyroid gland appeared within normal limits. Lungs: The tracheobronchial tree is patent bilaterally. There is no evidence of an infiltrate. Pleural spaces: There are no pleural effusions. Heart: The heart and pericardium are within normal limits. Coronary arteries: There are no coronary artery calcifications. Mediastinal space: There is mucosal thickening at the level of the distal esophagus. This could be secondary to patient's history of Salcido's esophagus Lymph nodes: No enlarged lymph nodes. Vasculature: The aorta is unremarkable. Bones/joints: There are degenerative changes at the AC joints bilaterally. There are slight degenerative changes of both shoulder joints. There are degenerative changes of the thoracic spine. Soft tissues: There is slight bilateral gynecomastia. IMPRESSION: Mucosal thickening of the distal esophagus. This could be secondary to patient's history of Salcido's esophagus. Osseous findings as above. FINDINGS: Liver: There is mild fatty infiltration of the liver. Gallbladder and bile ducts: The gallbladder is within normal limits. Pancreas: The pancreas is within normal limits. Spleen: The spleen is unremarkable. Adrenal glands: The adrenal glands are unremarkable. Kidneys and ureters: There is a small low- attenuation lesion within the midpole of the left kidney which is too small to characterize by CT criteria. The right kidney is unremarkable. Stomach and bowel: There are diverticula of the level of the colon. Appendix: The appendix is visualized and is within normal limits. Intraperitoneal space: Unremarkable. No free air. No significant fluid collection. Vasculature: There are arteriosclerotic changes of the aorta. Lymph nodes: No enlarged lymph nodes. Urinary bladder: The urinary bladder is unremarkable. Reproductive: The prostate is enlarged and indents the bladder base. The seminal vesicles are unremarkable. Bones/joints: There are slight degenerative changes of both hips. There are degenerative changes of the lumbar spine. There is degenerative disc disease at L4-L5. Soft tissues: There are bilateral fat containing incipient inguinal hernias. IMPRESSION: Mild fatty infiltration of the liver. Enlarged prostate correlation with the patient's PSA is recommended. Osseous findings as above. Bilateral fat containing incipient inguinal hernias. Lab Data Lab results reviewed: Yes I reviewed the patient's lab results. Labs: Laboratory Tests Range/Units 07/21/22 07/21/22 07/21/22 16:48 16:48 16:48 WBC (4.4-10.8) 10^3/uL 11.82 H RBC (4.36-5.78) 10^6/uL 5.22 Hgb (13.5-17.5) g/dL 16.5 Hct (40.0-50.0) % 45.6 MCV (80-95) fL 87 MCH (27.0-33.0) pg 31.6 MCHC (32.0-36.0) % 36.2 H RDW (11.8-14.1) % 12.4 Plt Count (130-400) 10^3/uL 267 MPV (8.0-11.0) fL 10.0 Immature Gran % 0.3 Neutrophils % 64.5 Lymphocytes % 27.2 Monocytes % 6.9 Eosinophils % 0.5 Basophils % 0.6 Nucleated RBC % (0.0-0.3) % 0.0 Absolute Neutrophils (1.2-6.7) 10^3/uL 7.62 H Absolute Lymphocytes (1.2-3.4) 10^3/uL 3.22 Absolute Monocytes (0.1-0.8) 10^3/uL 0.82 H Absolute Eosinophils (0.0-0.7) 10^3/uL 0.06 Absolute Basophils (0.0-0.2) 10^3/uL 0.07 PT (9.3-11.0) sec INR (0.9-1.1) APTT (21.5-31.9) sec Sodium (136-145) mmol/L 142 Potassium (3.5-5.1) mmol/L 3.4 L Chloride (98-107) mmol/L 106 Carbon Dioxide (21.0-32.0) mmol/L 26.7 Anion Gap (3-11) mmol/L 9.3 BUN (7-18) mg/dL 20 H Creatinine (0.70-1.30) mg/dL 1.2 Est GFR (CKD-EPI 2020) (mL/min/1.73m2) 69.23 Glucose (74-106) mg/dL 115 H Calcium (8.5-10.1) mg/dL 9.6 Magnesium (1.8-2.4) mg/dL 2.2 Total Bilirubin (0.2-1.0) mg/dL 1.1 H AST (15-37) U/L 20 ALT (16-63) U/L 31 Alkaline Phosphatase (46-116) U/L 99 Troponin I (<or=60) ng/L < 50 Total Protein (6.4-8.2) g/dL 8.4 H Albumin (3.4-5.0) g/dL 4.7 Lipase (16-77) U/L 126 H Urine Color (Yellow) Urine Clarity (Clear) Urine pH (5-8) Ur Specific Gaastra (1.005-1.025) Urine Protein (Negative) mg/dL Urine Ketones (Negative) mg/dL Urine Blood (Negative) Urine Nitrite (Negative) Urine Bilirubin (Negative) Urine Urobilinogen (Up TO 0.2) EU/dL Ur Leukocyte Esterase (Negative) Urine RBC (0-2) HPF Urine WBC (0-5) HPF Ur Epithelial Cells (Negative) HPF Urine Crystals (Negative) HPF Urine Bacteria (Negative) HPF Urine Casts (Negative) LPF Urine Mucus (Negative) Urine Other (Negative) Ur Culture Indicated? Urine Glucose (Negative) mg/dL Urine Opiates Screen (Negative) Urine Methadone Screen (Negative) Ur Barbiturates Screen (Negative) Ur Tricyclics Screen (Negative) Ur Amphetamines Screen (Negative) U Benzodiazepines Scrn (Negative) Urine Cocaine Screen (Negative) Ur THC Screen (Negative) Range/Units 07/21/22 07/21/22 07/21/22 16:48 17:45 17:45 WBC (4.4-10.8) 10^3/uL RBC (4.36-5.78) 10^6/uL Hgb (13.5-17.5) g/dL Hct (40.0-50.0) % MCV (80-95) fL MCH (27.0-33.0) pg MCHC (32.0-36.0) % RDW (11.8-14.1) % Plt Count (130-400) 10^3/uL MPV (8.0-11.0) fL Immature Gran % Neutrophils % Lymphocytes % Monocytes % Eosinophils % Basophils % Nucleated RBC % (0.0-0.3) % Absolute Neutrophils (1.2-6.7) 10^3/uL Absolute Lymphocytes (1.2-3.4) 10^3/uL Absolute Monocytes (0.1-0.8) 10^3/uL Absolute Eosinophils (0.0-0.7) 10^3/uL Absolute Basophils (0.0-0.2) 10^3/uL PT (9.3-11.0) sec 10.2 INR (0.9-1.1) 1.0 APTT (21.5-31.9) sec 27.8 Sodium (136-145) mmol/L Potassium (3.5-5.1) mmol/L Chloride (98-107) mmol/L Carbon Dioxide (21.0-32.0) mmol/L Anion Gap (3-11) mmol/L BUN (7-18) mg/dL Creatinine (0.70-1.30) mg/dL Est GFR (CKD-EPI 2020) (mL/min/1.73m2) Glucose (74-106) mg/dL Calcium (8.5-10.1) mg/dL Magnesium (1.8-2.4) mg/dL Total Bilirubin (0.2-1.0) mg/dL AST (15-37) U/L ALT (16-63) U/L Alkaline Phosphatase (46-116) U/L Troponin I (<or=60) ng/L Total Protein (6.4-8.2) g/dL Albumin (3.4-5.0) g/dL Lipase (16-77) U/L Urine Color (Yellow) Yellow Urine Clarity (Clear) Clear Urine pH (5-8) 7.0 Ur Specific Gaastra (1.005-1.025) 1.025 Urine Protein (Negative) mg/dL Negative Urine Ketones (Negative) mg/dL 40 H Urine Blood (Negative) Trace-intact H Urine Nitrite (Negative) Negative Urine Bilirubin (Negative) Negative Urine Urobilinogen (Up TO 0.2) EU/dL 0.2 Ur Leukocyte Esterase (Negative) Negative Urine RBC (0-2) HPF 0-2 Urine WBC (0-5) HPF 0-2 Ur Epithelial Cells (Negative) HPF Rare Urine Crystals (Negative) HPF Negative Urine Bacteria (Negative) HPF Negative Urine Casts (Negative) LPF Negative Urine Mucus (Negative) Negative Urine Other (Negative) Negative Ur Culture Indicated? No Urine Glucose (Negative) mg/dL Negative Urine Opiates Screen (Negative) Negative Urine Methadone Screen (Negative) Negative Ur Barbiturates Screen (Negative) Negative Ur Tricyclics Screen (Negative) Negative Ur Amphetamines Screen (Negative) Negative U Benzodiazepines Scrn (Negative) Negative Urine Cocaine Screen (Negative) Negative Ur THC Screen (Negative) Positive A HPI General Mode of arrival: ambulatory . Date/Time Provider Initiated Documentation: 07/21/22 16:37 . Limitations to Documentation: no limitations . Information obtained by: patient, RN notes reviewed and old records reviewed . HPI Narrative: 61-year-old male presents to the ER with a chief complaint severe nausea vomiting and midsternal midepigastric chest pain which has been ongoing for approximately a week. Patient was seen by his PCP earlier today had a chest x- ray and EKG which showed multifocal PVCs. He was given a referral to [facility] and neurology. He reports that after leaving his PCPs and the vomiting continued and he has a funny feeling in his mid epigastrium. He reports emesis is yellow in color and formed stools he denies any diarrhea, fever or chills unknown if he has any hematochezia. He states that he stopped taking methadone approximately a week ago due to a heart arrhythmia. Past medical history includes Salcido's esophagus, hypertension, GERD, type 2 diabetes, chronic back pain and neuropathy. Related Data Home Medications Medication Instructions Recorded Confirmed ascorbic acid (vitamin C) 1,000 mg 2,000 mg PO DAILY 04/12/14 07/21/22 tablet vitamin B complex 1 ea PO DAILY 12/30/16 07/21/22 lysine 500 mg tablet (L-Lysine) 1,000 mg PO DAILY 08/31/18 07/21/22 blood-glucose meter (FreeStyle #1 ea 10/02/20 07/21/22 Lite Meter kit) blood-glucose meter #1 ea 10/03/20 07/21/22 lancets #100 ea 10/03/20 07/21/22 blood sugar diagnostic (OneTouch #100 strips 03/12/22 07/21/22 Verio test strips) acetaminophen 500 mg tablet 500 mg PO Q6H PRN pain #60 tabs 04/01/22 07/21/22 ibuprofen 600 mg tablet 600 mg PO TID PRN pain #60 tabs 04/01/22 07/21/22 glipizide 10 mg tablet, extended 10 mg PO DAILY #90 tabs 05/20/22 07/21/22 release 24 hr pantoprazole 40 mg tablet,delayed 40 mg PO DAILY #90 tabs 05/20/22 07/21/22 release dulaglutide 1.5 mg/0.5 mL 1.5 mg (0.5 mL) subcut QWEEK #12 06/17/22 07/21/22 subcutaneous pen injector SYRGS (Trulicity) amoxicillin 500 mg-potassium 1 tab PO BID #14 tabs 07/14/22 07/21/22 clavulanate 125 mg tablet (Augmentin) sucralfate 1 gram tablet (Carafate) 1 g PO QACHS #112 tabs 07/21/22 07/21/22 Previous Rx's Medication Instructions Recorded blood-glucose meter #1 ea 10/03/20 lancets #100 ea 10/03/20 blood sugar diagnostic (OneTouch #100 strips 03/12/22 Verio test strips) acetaminophen 500 mg tablet 500 mg PO Q6H PRN pain #60 tabs 04/01/22 ibuprofen 600 mg tablet 600 mg PO TID PRN pain #60 tabs 04/01/22 glipizide 10 mg tablet, extended 10 mg PO DAILY #90 tabs 05/20/22 release 24 hr pantoprazole 40 mg tablet,delayed 40 mg PO DAILY #90 tabs 05/20/22 release dulaglutide 1.5 mg/0.5 mL 1.5 mg (0.5 mL) subcut QWEEK #12 06/17/22 subcutaneous pen injector SYRGS (Trulicity) amoxicillin 500 mg-potassium 1 tab PO BID #14 tabs 07/14/22 clavulanate 125 mg tablet (Augmentin) sucralfate 1 gram tablet (Carafate) 1 g PO QACHS #112 tabs 07/21/22 Allergies Allergy/AdvReac Type Severity Reaction Status Date / Time pregabalin [From Lyrica] AdvReac Mild 10/27/2016 Verified 07/21/22 16:51 lower extremity edema metformin AdvReac elevated Verified 07/21/22 16:51 creatinine General Stated Complaint: Chest Pain KT: 2 Review of Systems All systems reviewed & are unremarkable except as noted in HPI and below Gastrointestinal Gastrointestinal: Reports as per HPI, Reports abdominal pain, Denies melena (Den ies), Denies hematochezia (Denies), Reports nausea and Reports vomiting Musculoskeletal Musculoskeletal: Reports numbness and Reports tingling (Hands and Feet, hx Diabetic Neuropathy) Neurologic Neurologic: Reports numbness and Reports tingling (Hands and Feet, hx Diabetic Neuropathy) [facility] All Active Problems (Updated 07/21/22 @ 20:39 by Zehra Irwin NP) Nausea & vomiting (Acute) Delayed gastric emptying (Acute) COVID (Acute) 04/28/22 Left lateral epicondylitis (Acute) Right lateral epicondylitis (Acute) Constipation (Acute) 08/07/21 [facility] note Lower abdominal pain (Acute) 08/07/21 [facility] note SARS-CoV-2 positive (Acute ~05/2021) Right hand pain (Acute) Ulcer of toe of left foot (Acute) Left hand pain (Acute) Joint pain (Acute) Salcido's esophagus without dysplasia (Acute ~11/2020) Low back pain (Acute) Numbness of anterior thigh (Acute) GERD (gastroesophageal reflux disease) (Chronic) Abnormal blood chemistry (Acute) Chronic pain (Chronic) Type 2 diabetes mellitus with diabetic neuropathy, unspecified (Acute) Fatigue (Acute) Chest pain at rest (Acute) Nail abnormality (Acute) Toe ulcer (Acute) Joint stiffness (Acute) History of elevated antinuclear antibody (VY) (Acute) Statin declined (Acute) Noncompliance with CPAP treatment (Acute) Skin lesion (Acute) Musculoskeletal pain (Acute) Penile discharge (Acute) Pelvic pain in male (Acute) Yeast dermatitis of penis (Acute) Uncontrolled diabetes mellitus (Acute) Muscle spasm (Acute) Toe infection (Acute) Chronic low back pain (Acute) Helicobacter pylori infection (Acute 05/09/15) Gallstones (Acute) Acromioclavicular joint arthritis (Chronic) With respect to his right hand I think he could undergo simple trigger thumb and trigger finger release with excellent results at his convenience with respect to his right shoulder his CT scan showed sternal clavicular degenerative changes which were mild but significant degenerative changes over the acromioclavicular joint I am uncertain as to whether or not he is feeling pain in his medial clavicle as it as a secondary phenomenon to limited range of motion in terms of axial rotation of the AC joint. It is possible that he still has primary sternoclavicular arthritis but the x-ray findings on CT scan are modest. I would recommend first trying to eliminate both quads allergies. I would start with iontophoresis in physical therapy over the sternoclavicular joint if this was ineffective then I would re commend a trial of Depo-Medrol injection of the sternoclavicular joint if neither of these were effective then I would recommend possibly resection of the distal clavicle. He is reluctant to have any type of corticosteroid but I explained to him that this is a different type of corticosteroid utilization compared to when he had systemic corticosteroids for a medical condition a few years ago at that time he had elevation of his A1c and he does not want that. I feel simple injection of Depo-Medrol would have minimal effect on his overall systemic glucose levels and iontophoresis would have almost no effect I will see him back in 3-4 weeks for follow-up Type 2 diabetes mellitus with diabetic neuropathy (Acute 10/26/15) Right knee pain (Acute 06/06/15) Painful diabetic neuropathy (Acute 04/15/17) CHERYLE (obstructive sleep apnea) (Acute 03/31/17) Numbness and tingling in left arm (Acute 08/16/15) Hypertriglyceridemia, essential (Acute 05/23/15) Essential (primary) hypertension (Acute 05/02/14) Esophagitis (Acute 01/18/18) GI [facility] Degenerative joint disease of cervical spine (Acute 09/05/15) C2-C3, C3-C4 with possible foraminal narrowing at C5-C6 and C6-C7 Chronic diarrhea (Acute 05/09/15) Barretts esophagus (Acute 08/08/15) [facility] [place] [facility] consult 11/2015 --> pt declines injections & surgery Cervical MRI 10/2015 Acid reflux (Acute 05/09/15) GERD by EGD 01/18/[address] (Acute 08/18/16) Chest discomfort (Acute 05/02/14) Medical History Essential hypertension GERD (gastroesophageal reflux disease) History of Helicobacter pylori infection Surgical History Arthroplasty of knee (08/14/15) right knee arthroscopy w/partial posteriolateral menisectomy: limited medial femoral chondroplasty Dr Rascon Colonoscopy - IV Sedation (04/20/15) DR.TERRY BARILLAS Cubital tunnel syndrome, bilateral S/P L cubital tunnel release: 04/01/2022 H/O colonoscopy (~07/24/21) 07/24/21 [facility] H/O endoscopy (~07/24/21) 07/24/21 [facility] Left carpal tunnel syndrome S/P L ECTR: 04/01/2022 Right carpal tunnel syndrome S/P ECTR: 09/11/2021 Trigger thumb, right thumb S/P Release: 09/11/2021 Family History Mother Substance abuse Diabetes Essential hypertension Heart disease Hyperlipidemia Mental disorder Other Chronic mental illness Social History Smoking/Tobacco Use Status: Former Tobacco Use Quit Date: 06/15/76 Smoking risk assessment performed?: Yes Alcohol Intake: current Alcohol Intake frequency: a few times a week Alcohol type: beer and hard liquor Details: couple shots, couple beers a few times a week, more if its a bad day Drug use: Occasionally Substance use type: marijuana Household members: spouse and children Housing: house Number of Children: 2 current occupation: disabled What is your relationship status?: Panel score (0-1 are the most socially isolated patients): 1 What type of physical activity do you participate in: walking and additional Details: PT exercises Duration: 15-30 minutes/day Frequency: daily Do you feel safe at home: Yes Do you feel safe in your relationship?: Yes Exam Narrative Exam Narrative: Constitutional: Alert and oriented x3. Appears stated age. Obese body habitus. Head: Normocephalic, no trauma. Eyes: Pupils PERRL, Red reflex noted, EOM's intact. Eyelids symmetrical without lesions, discharge, or swelling. ENT: Bilateral TM's WNL, External ear normal to inspection, no mastoid TTP, swelling, or erythema, Nasal turbinates WNL, no nasal discharge. Normal dentition, Posterior pharynx WNL, no exudate. Chest: RRR, Normal S1, S2, distal pulses intact. See EKG. Multifocal PVCs rate of 77 Resp: Lungs clear to auscultation bilaterally, no wheezes, rales, or rhonchi. Abdomen: Soft, non-distended, Normoactive bowel sounds all 4 quads. Nontender with palpation all 4 quadrants. Musculoskeletal: Normal gait, 5/5 strength to all four extremities. Skin: No suspicious rashes or lesions. Capillary refill less than 2 sec. pale Neurologic: Cranial nerves II-XII intact. Alert and oriented x 3. Motor: No deficits noted. Sensory: Intact bilaterally all 4 extremities. Reflexes: DTR's intact bilaterally.. Hematologic/Lymphatic: No ecchymosis, no lymphadenopathy. Course Vital Signs Vital signs: Vital Signs Temperature 36.5 C 07/21/22 16:41 Pulse 69 07/21/22 16:41 Respiratory Rate 19 07/21/22 16:41 Blood Pressure 199/83 H 07/21/22 16:41 Pulse Oximetry 100 07/21/22 16:41 Temperature 36.5 C 07/21/22 16:41 Temperature Source Temporal Artery Scan 07/21/22 16:41 Pulse 69 07/21/22 16:41 Respiratory Rate 19 07/21/22 16:41 Blood Pressure 199/83 H 07/21/22 16:41 Blood Pressure Position Supine 07/21/22 16:41 Pulse Oximetry 100 07/21/22 16:41 Oxygen Delivery Method Room Air 07/21/22 16:41 Oxygen Flow Rate 0 07/21/22 16:41 Pain Level 0 07/21/22 16:41
[2022-07-21] MEDS: Ondansetron 4 MG/2 ML VIAL IVP (16:56)
--- NOTE | 2022-07-21 17:00 | DI.CT_ITS ---
Exam(s) CT CHEST/ABD/PEL W EXAM: CT CHEST/ABD/PEL W CLINICAL HISTORY: N/V Midepigastric pain, hx barretts esophagus. TECHNIQUE: Imaging Protocol: Axial computed tomography images with coronal and sagittal reformatted images were created and reviewed CONTRAST MATERIAL: Intravenous: Omnipaque 350 Contrast volume:98 mL Oral: None COMPARISON: CT CT thorax abdomen CTA from 09/20/2018 FINDINGS: CHEST: LUNGS: There are no infiltrates nor pleural effusions. No ominous pulmonary nodules. No significant focal findings in the trachea and mainstem bronchi. No bronchiectasis.x. MEDIASTINUM: There is no hilar nor mediastinal adenopathy. Visualized thyroid unremarkable. CARDIAC: Heart size is normal. There is no pericardial effusion.Caliber of the thoracic aorta is wit hin normal limits. OSSEOUS: No significant osseous lesions.No fractures.. OTHER: There is symmetrical mild bilateral gynecomastia again noted. ABDOMEN: There is no ascites. LIVER: There are no focal hepatic lesions nor dilatation of intrahepatic ducts. GALLBLADDER/BILIARY: Subtle density in the gallbladder neck region, on either a non calcified gallsto ne or intraluminal fold. Gallbladder is mildly distended. No gallbladder wall edema. No pericholec ystic fluid. CBD is not dilated. PANCREAS: No evidence of pancreatic mass nor dilatation of the pancreatic duct. SPLEEN: Spleen is not enlarged. There are no intrasplenic lesions. Splenic and portal veins are hnies nt. ADRENALS: There are no significant adrenal masses. KIDNEYS: No calculi nor hydronephrosis. No solid renal masses. No cysts evident. ABDOMINAL AORTA: Abdominal aorta is not enlarged. LYMPH NODES: There is no retroperitoneal nor paraaortic adenopathy. ABDOMINAL WALL: No evidence of significant anterior abdominal wall nor inguinal hernia. GI: There is no evidence of bowel obstruction. PELVIS: LYMPH NODES: There is no intrapelvic nor inguinal adenopathy. GI: No evidence of appendicitis.There is sigmoid diverticulosis. No obvious acute diverticulitis. URINARY BLADDER: No calculi nor masses evident REPRODUCTIVE: Prostate mild-moderately enlarged. There is no obturator adenopathy. Calcifications n oted both prostate gland as well as seminal vesicles bilaterally. OSSEOUS: No significant osseous lesions. IMPRESSION: 1. Compared to the prior CT scan September 2018 there is significantly less a [place] steatosis evident a t this time. There also no discrete focal hepatic lesions. No ascites. 2. Possible subtle noncalcified gallstone versus fold in the gallbladder neck. Recommend follow-up g allbladder ultrasound. 3. There is sigmoid diverticulosis but no evidence of obvious acute diverticulitis. No free fluid. 4. Prostate gland mildly enlarged. Calcifications noted both the prostate gland as well as within th e seminal vesicles. RADIATION DOSE DELIVERED: 2,051.75mGy.cm Total DLP DATA REPOSITORY: All CT scans at this facility are submitted to the National Radiology Data Registry (NRDR) Dose Index Registry (DIR) with the [employer] ([employer]). RADIATION OPTIMIZATION: All CT scans at this facility use at least one of these dose optimization te chniques: automated exposure control; mA and/or kV adjustment per patient size (includes targeted exa ms where dose is matched to clinical indication); or iterative reconstruction.
[2022-07-21 17:05] LABS: Abs Immature Grans 0.03 10^3/uL (0.0-0.06); Absolute Basophil Count 0.07 10^3/uL (0.0-0.2); Absolute Eosinophil Count 0.06 10^3/uL (0.0-0.7); Absolute Monocyte Count 0.82 10^3/uL (0.1-0.8); Basophils % 0.6; Eosinophils % 0.5; HCT 45.6 % (40.0-50.0); HGB 16.5 g/dL (13.5-17.5); Immature Grans % 0.3; Lymphocytes % 27.2; MCH 31.6 pg (27.0-33.0); MCHC 36.2 % (32.0-36.0); MCV 87 fL (80-95); Monocytes % 6.9; Neutrophils % 64.5; Platelet Count 267 10^3/uL (130-400); RBC 5.22 10^6/uL (4.36-5.78); RDW 12.4 % (11.8-14.1); RDW-SD 39.6 fL; WBC 11.82 10^3/uL (4.4-10.8)
[2022-07-21 17:08] LABS: Absolute Lymphocyte Count 3.22 10^3/uL (1.2-3.4); Absolute Neutrophil Count 7.62 10^3/uL (1.2-6.7)
[2022-07-21] MEDS: Normal Saline 1,000 ML 1000 ML IV (17:08)
[2022-07-21 17:20] LABS: Lipase 126 U/L (16-77)
[2022-07-21] MEDS: Famotidine 20 MG/2 ML VIAL IVP (17:20)
[2022-07-21 17:26] LABS: ALT 31 U/L (16-63); AST 20 U/L (15-37); Albumin 4.7 g/dL (3.4-5.0); Alkaline Phosphatase 99 U/L (46-116); Anion Gap 9.3 mmol/L (3-11); BUN 20 mg/dL (7-18); Bilirubin, Total 1.1 mg/dL (0.2-1.0); CO2 26.7 mmol/L (21.0-32.0); CREATININE 1.2 mg/dL (0.70-1.30); Calcium 9.6 mg/dL (8.5-10.1); Chloride 106 mmol/L (98-107); Estimated GFR 69.23 (mL/min/1.73m2); Glucose 115 mg/dL (74-106); Magnesium 2.2 mg/dL (1.8-2.4); Potassium 3.4 mmol/L (3.5-5.1); Sodium 142 mmol/L (136-145); Total Protein 8.4 g/dL (6.4-8.2); Troponin I < 50 ng/L (<or=60)
[2022-07-21] MEDS: Omnipaque 350 MG/ML 100 ML BTL 98 ML IJ (17:57)
[2022-07-21] MEDS: Normal Saline Flush 10 ML SYR IVP (17:58)
[2022-07-21] MEDS: Normal Saline - Diluent 50 ML VIAL IJ (17:58)
[2022-07-21 18:05] LABS: Bilirubin Negative (Negative); Blood Trace-intact (Negative); Clarity Clear (Clear); Glucose Negative (Negative); Ketones 40 mg/dL (Negative); Leukocyte Esterase Negative (Negative); Nitrite Negative (Negative); Specific Gravity 1.025 (1.005-1.025); Urobilinogen 0.2 EU/dL (Up TO 0.2)
[2022-07-21 18:07] LABS: *AMPHETAMINES SCREEN URINE Negative (Negative); *BARBITURATES SCREEN URINE Negative (Negative); *BENZODIAZEPINES SCREEN URINE Negative (Negative); Cannabinoids THC Positive (Negative); Cocaine Screen,Urine Negative (Negative); METHADONE URINE SCREEN Negative (Negative); OPIATES URINE SCREEN Negative (Negative); Tricyclic Antidepressants Negative (Negative)
[2022-07-21 18:15] LABS: Bacteria Negative HPF (Negative); C & S Indicated? No; Casts Negative LPF (Negative); Crystals Negative HPF (Negative); Epithelial Cells Rare HPF (Negative); Mucus Negative (Negative); Other Cells Negative (Negative); RBC 0-2 HPF (0-2); WBC 0-2 HPF (0-5)
--- NOTE | 2022-07-21 18:15 | RT.EKG_ITS ---
APPROVED REPORT Exam: Resting ECG Reason for Exam: checking prior to oriental medicine practitioner Patient Location: E HR:72 bpm ECG Measurements Heart Rate 72 AXIS NC 226 P 68 QRSd 112 QRS 90 QT 430 T 14 QTc 477 Conclusion Sinus rhythm...normal P axis, V-rate 60- 99 Multiple ventricular premature complexes...V complexes w/ short R-R intervls Prolonged NC interval...NC >210, V-rate 50- 90 Anterior infarct, old...Q >40mS, abnormal ST-T, V2-V5
[2022-07-21 18:32] LABS: PTT Activated 27.8 sec (21.5-31.9); Prothrombin Time 10.2 sec (9.3-11.0)
--- NOTE | 2022-07-21 18:37 | DI.VRAD_ITS ---
PROCEDURE INFORMATION: Exam: CT Chest With Contrast; Diagnostic Exam date and time: 07/21/2022 5:49 PM Age: 61 years old Clinical indication: Other: N/v midepigastric pain, HX barretts esophagus TECHNIQUE: Imaging protocol: Diagnostic computed tomography of the chest with contrast. 3D rendering (Not supervised by radiologist): MIP and/or 3D reconstructed images were created by the technologist. Radiation optimization: All CT scans at this facility use at least one of these dose optimization techniques: automated exposure control; mA and/or kV adjustment per patient size (includes targeted exams where dose is matched to clinical indication); or iterative reconstruction. Contrast material: OMNIPAQUE 350; Contrast volume: 98 ml; Contrast route: INTRAVENOUS (IV); COMPARISON: CR XR CHEST 2V PA LATERAL 07/21/2022 10:56 AM FINDINGS: Thyroid: The visualized portions of the thyroid gland appeared within normal limits. Lungs: The tracheobronchial tree is patent bilaterally. There is no evidence of an infiltrate. Pleural spaces: There are no pleural effusions. Heart: The heart and pericardium are within normal limits. Coronary arteries: There are no coronary artery calcifications. Mediastinal space: There is mucosal thickening at the level of the distal esophagus. This could be secondary to patient's history of Salcido's esophagus Lymph nodes: No enlarged lymph nodes. Vasculature: The aorta is unremarkable. Bones/joints: There are degenerative changes at the AC joints bilaterally. There are slight degenerative changes of both shoulder joints. There are degenerative changes of the thoracic spine. Soft tissues: There is slight bilateral gynecomastia. IMPRESSION: Mucosal thickening of the distal esophagus. This could be secondary to patient's history of Salcido's esophagus. Osseous findings as above. PROCEDURE INFORMATION: Exam: CT Abdomen And Pelvis With Contrast Exam date and time: 07/21/2022 5:49 PM Age: 61 years old Clinical indication: Other: N/v midepigastric pain, HX barretts esophagus TECHNIQUE: Imaging protocol: Computed tomography of the abdomen and pelvis with contrast. 3D rendering (Not supervised by radiologist): MIP and/or 3D reconstructed images were created by the technologist. Radiation optimization: All CT scans at this facility use at least one of these dose optimization techniques: automated exposure control; mA and/or kV adjustment per patient size (includes targeted exams where dose is matched to clinical indication); or iterative reconstruction. Contrast material: OMNIPAQUE 350; Contrast volume: 98 ml; Contrast route: INTRAVENOUS (IV); COMPARISON: CT thorax abdomen CTA 09/20/2018 2:09 AM FINDINGS: Liver: There is mild fatty infiltration of the liver. Gallbladder and bile ducts: The gallbladder is within normal limits. Pancreas: The pancreas is within normal limits. Spleen: The spleen is unremarkable. Adrenal glands: The adrenal glands are unremarkable. Kidneys and ureters: There is a small low-attenuation lesion within the midpole of the left kidney which is too small to characterize by CT criteria. The right kidney is unremarkable. Stomach and bowel: There are diverticula of the level of the colon. Appendix: The appendix is visualized and is within normal limits. Intraperitoneal space: Unremarkable. No free air. No significant fluid collection. Vasculature: There are arteriosclerotic changes of the aorta. Lymph nodes: No enlarged lymph nodes. Urinary bladder: The urinary bladder is unremarkable. Reproductive: The prostate is enlarged and indents the bladder base. The seminal vesicles are unremarkable. Bones/joints: There are slight degenerative changes of both hips. There are degenerative changes of the lumbar spine. There is degenerative disc disease at L4-L5. Soft tissues: There are bilateral fat containing incipient inguinal hernias. IMPRESSION: Mild fatty infiltration of the liver. Enlarged prostate correlation with the patient's PSA is recommended. Osseous findings as above. Bilateral fat containing incipient inguinal hernias. Dictated and Authenticated by: Hung Justice MD. Ordering:KILO Shahid MD
[2022-07-21] MEDS: Droperidol 5 MG/2 ML VIAL 2.5 MG IVP (18:59)
[2022-07-21] MEDS: Ondansetron O.D.T. 4 MG TABEF, 3 TABS/BTL PO (20:50)
== END 2022-07-21 20:52 | disposition home or self-care (01) ==
PROVIDERS: Emergency Provider Registered Nurse Emergency; PCP Nurse Practitioner
DX: K30 Functional dyspepsia (principal); D72.829 Elevated white blood cell count, unspecified; I10 Essential (primary) hypertension; E11.40 Type 2 diabetes mellitus with diabetic neuropathy, unspecified; Z79.84 Long term (current) use of oral hypoglycemic drugs; Z79.4 Long term (current) use of insulin; Z86.16 Personal history of COVID-19
CPT/HCPCS: 36415; 36416; 74177; 80053; 80307; 82962; 83690; 93005; 96361; 96374; 96375; 99285; 71260; 81003; 81015; 83735; 84484; 85025; 85610; 85730; 93010; J1790; J2405; J3490

== ENCOUNTER 2022-09-16 03:09 | Outpatient (CLI) | payer MEDICAID, SELFPAY ==
[2022-09-16 12:15] LABS: Abs Immature Grans 0.04 10^3/uL (0.0-0.06); Absolute Basophil Count 0.07 10^3/uL (0.0-0.2); Absolute Eosinophil Count 0.18 10^3/uL (0.0-0.7); Absolute Lymphocyte Count 2.64 10^3/uL (1.2-3.4); Absolute Monocyte Count 0.53 10^3/uL (0.1-0.8); Absolute Neutrophil Count 4.87 10^3/uL (1.2-6.7); Basophils % 0.8; Eosinophils % 2.2; HCT 42.3 % (40.0-50.0); HGB 14.6 g/dL (13.5-17.5); Immature Grans % 0.5; Lymphocytes % 31.7; MCH 31.5 pg (27.0-33.0); MCHC 34.5 % (32.0-36.0); MCV 91 fL (80-95); MPV 9.9 fL (8.0-11.0); Monocytes % 6.4; Neutrophils % 58.4; Platelet Count 271 10^3/uL (130-400); RBC 4.64 10^6/uL (4.36-5.78); RDW 13.2 % (11.8-14.1); RDW-SD 44.1 fL; WBC 8.33 10^3/uL (4.4-10.8)
[2022-09-16 12:41] LABS: Bilirubin Negative (Negative); Blood Negative (Negative); Clarity Clear (Clear); Glucose Negative (Negative); Ketones Negative (Negative); Leukocyte Esterase Negative (Negative); Nitrite Negative (Negative); Specific Gravity >= 1.030 (1.005-1.025); Urobilinogen 0.2 mg/dL (Up to 0.2); pH 5.5 (5-8)
[2022-09-16 12:47] LABS: Hemoglobin A1C 6.8 % (<5.7)
[2022-09-16 13:06] LABS: COMMENT (LAB VIEW ONLY) 149.82 mg/dL; Microalb ug/mg Crea 4.4 ug/mg Cr
[2022-09-16 13:12] LABS: ALT 35 U/L (16-63); AST 15 U/L (15-37); Albumin 4.2 g/dL (3.4-5.0); Alkaline Phosphatase 110 U/L (46-116); Anion Gap 9.1 mmol/L (3-11); BUN 21 mg/dL (7-18); Bilirubin, Total 0.7 mg/dL (0.2-1.0); CO2 28.9 mmol/L (21.0-32.0); Calcium 9.3 mg/dL (8.5-10.1); Calculated LDL 82 mg/dL (<100); Chloride 106 mmol/L (98-107); Cholesterol 164 mg/dL (<200); Estimated GFR 86.16 (mL/min/1.73m2); Glucose 188 mg/dL (74-106); HDL Cholesterol 45 mg/dL (40-60); Potassium 4.3 mmol/L (3.5-5.1); Sodium 144 mmol/L (136-145); TSH (W/Ref FT4) 1.16 uIU/mL (0.36-3.74); Triglyceride 188 mg/dL (<150)
[2022-09-17 10:18] LABS: HIV-1/2 Ag & Ab Screen Negative (Negative)
[2022-09-17 10:25] LABS: Hepatitis C Ab w Rflx HCV PCR Negative (Negative)
== END 2022-09-16 03:10 | disposition home or self-care (01) ==
LOC: LBO 03:10
PROVIDERS: PCP Nurse Practitioner; Visit Provider Nurse Practitioner
DX: I10 Essential (primary) hypertension (principal); R63.5 Abnormal weight gain; E11.40 Type 2 diabetes mellitus with diabetic neuropathy, unspecified; R82.998 Other abnormal findings in urine; J45.909 Unspecified asthma, uncomplicated; Z11.4 Encounter for screening for human immunodeficiency virus [HIV]; Z11.59 Encounter for screening for other viral diseases
CPT/HCPCS: 36415; 80053; 80061; 86803; 87389; 81003; 82043; 82570; 83036; 84443; 85025

== ENCOUNTER → 2023-02-26 00:48 | Outpatient (CLI) | payer MEDICAID, SELFPAY ==
--- NOTE | 2023-02-26 10:17 | DI.NM_ITS ---
APPROVED REPORT Exam: Pharmacologic Patient Location: Out-Patient Room/Bed: Stress Nurse: Lexus Chowdary RN Ordering Provider:FABIANBRIDGET ALEGREE, Contact Number: [phone] BMI: 38.92 Baseline Rhythm: Sinus Rhythm Comment: 1st degree AV block Indications: Chest pain, diabetes Medical History Medical History: Chronic pain, DMT2 (uncontrolled), CHERYLE (non compliant with CPAP), declined statin, d iabetic neuropathy, GERD, HTN, hypertriglyceridemia, COVID Cardiac Medications: Vitamin B complex, valsartan, sucralafate, pantoprazole, glipizide, dulaglutide Allergies: Pregabalin, metformin, gabapentin Cardiac Risk Factors: Family Hx, HTN, HLD, diabetes Previous Cardiac Procedures: None Pretest Chest Pain Characteristics: None Exercise History: Sedentary Physical Disabilities: None Lung Sounds: Clear to auscultation Heart Sounds: Regular Stress Test Details Test: Pharmacologic stress was paired with low level exercise. Reason for pharmacologic stress test: changed from exercise stress test due to inability to reach t arget heart rate. Nuclear Acquisition: Rest Tc-99m/Stress Tc-99m 1 day Rest Isotope: Tc-99m Sestamibi. Dose: 13.0 Date: 02/26/2023 Injection Time: 0920 Stress Isotope: Tc-99m Sestamibi. Dose: 35.8 Date: 02/26/2023 Injection Time: 1050 HR Resting HR Supine: 58 bpm Max Heart Rate (APMHR): 159.225559 bpm Resting HR Standin bpm Target HR (85% APMHR): 135.438693 bpm Max HR Achieved: 121 bpm % of APMHR: 76.10 Recovery HR: 74 bpm HR response to stress: Blunted HR response to stress BP Resting BP Supine: 138/82 mmHg Resting BP Standin/90 mmHg Max BP: 180/80 mmHg Recovery BP: 138/76 mmHg BP response to stress: Normal blood pressure response to stress. ECG Resting ECG: Sinus Rhythm, 1st degree AV block Ectopy: None Stress ECG: Sinus Bradycardia, 1st degree AV block ST Change: Nondiagnostic low heart rate Arrhythmia: Occasional PVC Recovery ECG: Sinus Rhythm, 1st degree AV block Recovery ST Change: Nondiagnostic low heart rate Recovery Arrhythmia: Occasional PVC Clinical Stress Symptoms: General Fatigue, Chest pain 1/10 Exercise duration: 10 min00 sec Highest Stage Reached: Stage 3: 3.4 mph at 14% grade. Exercise capacity: 8.78 METs Angina Score: Non-Limiting [place] Treadmill Score: 5.6 Rate Pressure Product: 33225 Stress ECG Conclusion 1. Resting electrocardiogram showed vertical axis and poor R wave progression 2. Patient underwent testing using a combination of exercise and pharmacologic stress with regadenoso n 3. Workload achieved was 8.78 METS. Peak heart rate was 76% of predicted for age 4. The electrocardiographic portion of the test was nondiagnostic 5. See MPI report [place] Treadmill Score is 5.6 which is Low risk. Stress Test Summary STAGE Time (mins) Speed (mph) Grade (%) HR BP SpO2 SYMPTOMS METS Supine 58 138/82 Standing 67 140/90 1 3 1.7 10 97 152/74 97 4.5 2 6 2.5 12 106 7 1 min post Lexiscan injection 94 180/80 SOB, 1/10 chest pain 3 min post Lexiscan injection 101 172/68 6 min post Lexiscan injection 90 174/70 9 min post Lexiscan injection 75 138/76 97 All symptoms resolved MPI Conclusion Myocardial perfusion is normal. There is no ischemia or evidence of prior infarction Ejection fraction is 58% with normal wall motion Radiologist Interpretation Radiologist agrees with Aircraft Cleaning Supervisor's Interpretation. Radiologist Interpretation by: Teresita Blackman MD Interpretation Date/Time: 02/26/2023 17:49:02
[2023-02-26] MEDS: Regadenoson 0.4 MG/5 ML SYR IVP (13:54)
== END ==
PROVIDERS: PCP Nurse Practitioner; Visit Provider Nurse Practitioner
DX: R07.9 Chest pain, unspecified (principal); E08.9 Diabetes mellitus due to underlying condition without complications
CPT/HCPCS: 78452; 93017; J2785

== ENCOUNTER 2023-09-29 03:58 | Outpatient (CLI) | payer MEDICAID, SELFPAY ==
[2023-09-29 12:14] LABS: Hemoglobin A1C 9.1 % (<5.7)
[2023-09-29 12:21] LABS: ALT 54 U/L (16-63); AST 21 U/L (15-37); Alkaline Phosphatase 126 U/L (46-116); Anion Gap 8.7 mmol/L (3-11); BUN 21 mg/dL (7-18); Bilirubin, Total 0.5 mg/dL (0.2-1.0); CO2 27.3 mmol/L (21.0-32.0); CREATININE 1.3 mg/dL (0.70-1.30); Calcium 9.3 mg/dL (8.5-10.1); Calculated LDL 102 mg/dL (<100); Chloride 102 mmol/L (98-107); Cholesterol 184 mg/dL (<200); Estimated GFR 62.11 (mL/min/1.73m2); Glucose 395 mg/dL (74-106); HDL Cholesterol 39 mg/dL (40-60); Potassium 4.3 mmol/L (3.5-5.1); Sodium 138 mmol/L (136-145); Total Protein 7.7 g/dL (6.4-8.2); Triglyceride 219 mg/dL (<150)
== END 2023-09-29 03:59 | disposition home or self-care (01) ==
LOC: LBO 03:58
PROVIDERS: PCP Nurse Practitioner; Visit Provider Nurse Practitioner
DX: E11.40 Type 2 diabetes mellitus with diabetic neuropathy, unspecified (principal); I10 Essential (primary) hypertension; E78.1 Pure hyperglyceridemia
CPT/HCPCS: 36415; 80053; 80061; 83036

== ENCOUNTER 2025-04-04 10:37 | Outpatient (CLI) | payer MEDICAID, SELFPAY ==
[2025-04-04 10:40] LABS: Abs Immature Grans 0.02 10^3/uL (0.0-0.06); HCT 43.5 % (40.0-50.0); HGB 15.4 g/dL (13.5-17.5); Immature Grans % 0.3 %; MCH 31.3 pg (27.0-33.0); MCHC 35.4 % (32.0-36.0); MCV 88 fL (80-95); MPV 9.9 fL (8.0-11.0); Platelet Count 215 10^3/uL (130-400); RBC 4.92 10^6/uL (4.36-5.78); RDW 12.7 % (11.8-14.1); RDW-SD 41.3 fL; WBC 7.42 10^3/uL (4.4-10.8)
[2025-04-04 10:58] LABS: Hemoglobin A1C 7.4 % (<5.7)
[2025-04-04 12:16] LABS: COMMENT (LAB VIEW ONLY) 201.44 mg/dL; Microalb ug/mg Crea 5.1 ug/mg Cr
[2025-04-04 12:37] LABS: Anion Gap 5.4 mmol/L (3-11); BUN 19 mg/dL (7-18); CO2 28.6 mmol/L (21.0-32.0); Calcium 9.1 mg/dL (8.5-10.1); Calculated LDL 49 mg/dL (<100); Chloride 106 mmol/L (98-107); Cholesterol 110 mg/dL (<200); Estimated GFR 75.43 (mL/min/1.73m2); Glucose 202 mg/dL (74-106); HDL Cholesterol 41 mg/dL (>or=40); Potassium 4.5 mmol/L (3.5-5.1); Sodium 140 mmol/L (136-145); TSH 1.30 uIU/mL (0.36-3.74); Triglyceride 103 mg/dL (<150)
[2025-04-04 22:12] LABS: PSA, Screening 2.2 ng/mL (<=4.5)
== END 2025-04-04 10:38 | disposition home or self-care (01) ==
LOC: LBO 10:37
DX: Z12.5 Encounter for screening for malignant neoplasm of prostate (principal); E11.40 Type 2 diabetes mellitus with diabetic neuropathy, unspecified; I10 Essential (primary) hypertension
CPT/HCPCS: 36415; 80048; 80061; 84153; 82043; 82570; 83036; 84443; 85025